=== PATIENT | female | born 1950 | race Caucasian/White ===

== ENCOUNTER 2017-02-03 16:39 | Emergency (ER) | payer MEDICAID ==
[~2017-02-03] VITALS: Ht 165.1 cm; Wt 92.0 kg
[~2017-02-03 16:39] MED LIST: IOHEXOL-300 100 ML BOTTLE ONE; SODIUM CHLORIDE 0.9% 10ML VIAL ONE
[2017-02-03 18:29] LABS: BASOPHILS % 0.6 % (0.0-2.0); EOSINOPHILS % 10.6 % (0.0-5.0); HEMATOCRIT. 37.8 % (36.0-48.0); HEMOGLOBIN. 12.5 g/dL (12.0-16.0); LYMPHOCYTES % 17.8 % (20.0-50.0); MEAN CORPUSCULAR HEMOGLOBIN 25.7 pg (28.0-32.0); MEAN CORPUSCULAR VOLUME 77.9 fL (81.0-99.0); MEAN PLATELET VOLUME 8.7 fl (7.4-10.4); MONOCYTES % 12.6 % (2.0-8.0); NEUTROPHILS % 58.4 % (40.0-76.0); PLATELET 224 x1000/uL (130-400); RED BLOOD CELL COUNT 4.86 mill/uL (4.2-5.4); RED CELL DISTRIBUTION WIDTH 27.4 % (11.6-14.6); WHITE BLOOD COUNT 4.5 x1000/uL (4.5-11.0)
[2017-02-03 18:30] LABS: ADD RBC MORPHOLOGY YES; DIFFERENTIAL COMMENT 1
[2017-02-03 18:36] LABS: INR 1.2; PROTHROMBIN TIME 12.4 sec
[2017-02-03] MEDS ORDERED: MORPHINE SULFATE 4 MG/ML CPJ (NOT FOR IM USE) IV STA (18:38)
[2017-02-03] MEDS ORDERED: SODIUM CHLORIDE 0.9% 500 ML IV ONE (18:38)
[2017-02-03] MEDS ORDERED: ONDANSETRON HCL 4MG/2ML VIAL IV STA (18:38)
[2017-02-03 18:47] LABS: ALANINE AMINOTRANSFERASE 25 IU/L (13-61); ANION GAP 13; CALCIUM 9.1 mg/dL (8.5-10.1); CARBON DIOXIDE 26 mEq/L (21-32); CHLORIDE 102 mEq/L (98-107); INDEX HEMOLYSI 1 (1-3); INDEX ICTERIC 1 (1-4); INDEX LIPEMIC 1 (1-3); LIPASE 81 IU/L (73-393); TROPONIN I < 0.02 ng/mL (0.00-0.04); UREA NITROGEN BLOOD 9 mg/dL (7-21); eGFR > 60 mL/min (>60)
[2017-02-03 18:51] LABS: PLATELET ESTIMATE NORMAL
[2017-02-03 18:52] LABS: ANISOCYTOSIS 2+
[2017-02-04] MEDS ORDERED: ONDANSETRON HCL 4MG/2ML VIAL IV ONE ×2 (01:00→01:41)
[2017-02-04] MEDS ORDERED: MORPHINE SULFATE 4 MG/ML CPJ (NOT FOR IM USE) IV ONE ×2 (01:00→01:41)
[2017-02-04 02:26] LABS: CLARITY URINE CLOUDY (CLEAR); COLOR URINE YELLOW (YELLOW); GLUCOSE URINE NEGATIVE (NEGATIVE); KETONES URINE NEGATIVE (NEGATIVE); LEUKOCYTE ESTERASE URINE TRACE (NEGATIVE); NITRITE URINE NEGATIVE (NEGATIVE); OCCULT BLOOD URINE NEGATIVE (NEGATIVE); PROTEIN URINE NEGATIVE (NEGATIVE); SPECIFIC GRAVITY URINE 1.084 (1.005-1.030); UROBILINOGEN URINE 0.2 E.U./dL (0.2-1.0)
[2017-02-04 02:35] VITALS: BP 140/63
[2017-02-04 03:08] LABS: BACTERIA URINE TRACE; RBC URINE 0-2 /hpf (0-2); SQUAMOUS EPITHELIAL CELL URINE 1+ /lpf (RARE/1+)
== END 2017-02-04 03:04 | disposition home or self-care (01) ==
LOC: ER 21:21
DX: K52.9 Noninfective gastroenteritis and colitis, unspecified (principal); J45.909 Unspecified asthma, uncomplicated; J44.9 Chronic obstructive pulmonary disease, unspecified; E11.9 Type 2 diabetes mellitus without complications; I10 Essential (primary) hypertension
CPT/HCPCS: 36415; 74177; 80053; 81001; 83690; 84484; 85025; 85610; 96361; 96374; 96375; 96376; 99285; A4216; J2270; J2405; J7030; Q9967; Z7610

== ENCOUNTER 2017-02-11 14:09 | Emergency (ER) | payer MEDICAID ==
[~2017-02-11] VITALS: Ht 165.1 cm; Wt 85.0 kg
[2017-02-11] MEDS ORDERED: SODIUM CHLORIDE 0.9% 1,000 ML IV ONE (14:46)
[2017-02-11] MEDS ORDERED: ONDANSETRON HCL 4MG/2ML VIAL IV STA (14:46)
[2017-02-11] MEDS ORDERED: MORPHINE SULFATE 4 MG/ML CPJ (NOT FOR IM USE) IV STA (14:46)
[2017-02-11 15:25] LABS: BASOPHILS % 0.4 % (0.0-2.0); EOSINOPHILS % 4.1 % (0.0-5.0); HEMATOCRIT. 39.1 % (36.0-48.0); HEMOGLOBIN. 12.6 g/dL (12.0-16.0); LYMPHOCYTES % 10.6 % (20.0-50.0); MEAN CORPUSCULAR HEMOGLOBIN 25.9 pg (28.0-32.0); MEAN CORPUSCULAR HGB CONC 32.3 g/dL (31.0-37.0); MEAN CORPUSCULAR VOLUME 80.1 fL (81.0-99.0); MEAN PLATELET VOLUME 8.9 fl (7.4-10.4); NEUTROPHILS % 77.9 % (40.0-76.0); PLATELET 205 x1000/uL (130-400); RED BLOOD CELL COUNT 4.87 mill/uL (4.2-5.4); RED CELL DISTRIBUTION WIDTH 27.5 % (11.6-14.6); WHITE BLOOD COUNT 7.1 x1000/uL (4.5-11.0)
[2017-02-11 15:28] LABS: CHLORIDE 98 mEq/L (98-107); INDEX HEMOLYSI 1 (1-3); INDEX ICTERIC 1 (1-4); INDEX LIPEMIC 1 (1-3)
[2017-02-11 15:30] LABS: INR 1.2; PROTHROMBIN TIME 12.5 sec
[2017-02-11 15:31] LABS: ADD RBC MORPHOLOGY YES; CALCIUM 8.5 mg/dL (8.5-10.1); DIFFERENTIAL COMMENT 1
[2017-02-11 15:37] LABS: ALANINE AMINOTRANSFERASE 44 IU/L (13-61); ALBUMIN 3.1 g/dL (3.4-5.0); ANION GAP 15; CARBON DIOXIDE 28 mEq/L (21-32); LIPASE 438 IU/L (73-393); UREA NITROGEN BLOOD 12 mg/dL (7-21); eGFR > 60 mL/min (>60)
[2017-02-11 16:14] LABS: ANISOCYTOSIS 2+; PLATELET ESTIMATE NORMAL
[2017-02-11 18:13] LABS: CLARITY URINE CLEAR (CLEAR); COLOR URINE YELLOW (YELLOW); GLUCOSE URINE NEGATIVE (NEGATIVE); KETONES URINE NEGATIVE (NEGATIVE); LEUKOCYTE ESTERASE URINE TRACE (NEGATIVE); NITRITE URINE NEGATIVE (NEGATIVE); OCCULT BLOOD URINE NEGATIVE (NEGATIVE); PROTEIN URINE NEGATIVE (NEGATIVE); SPECIFIC GRAVITY URINE 1.049 (1.005-1.030); UROBILINOGEN URINE 0.2 E.U./dL (0.2-1.0)
[2017-02-11] MEDS ORDERED: MORPHINE SULFATE 4 MG/ML CPJ (NOT FOR IM USE) IV NR (19:00)
[2017-02-11] MEDS ORDERED: ONDANSETRON HCL 4MG/2ML VIAL IV NR (19:00)
[2017-02-11 19:12] LABS: BACTERIA URINE TRACE; RBC URINE 0-2 /hpf (0-2); SQUAMOUS EPITHELIAL CELL URINE 1+ /lpf (RARE/1+); WBC URINE 0-2 /hpf (0-2)
[2017-02-11 21:20] VITALS: BP 132/62
== END 2017-02-11 21:24 | disposition home or self-care (01) ==
LOC: ER 14:38
DX: R10.9 Unspecified abdominal pain (principal); E11.9 Type 2 diabetes mellitus without complications; I10 Essential (primary) hypertension; J44.9 Chronic obstructive pulmonary disease, unspecified
CPT/HCPCS: 36415; 74177; 76705; 80053; 81001; 82962; 83690; 85025; 85610; 96361; 96374; 96375; 96376; 99285; A4216; J2270; J2405; J7030; Q9967; Z7610

== ENCOUNTER 2018-07-15 15:13 | Emergency (ER) | payer MEDICAID ==
[~2018-07-15] VITALS: Ht 165.1 cm; Wt 113.0 kg
[2018-07-15] MEDS ORDERED: BACITRACIN ZINC OINT UDPKT TOP ONE (20:30)
[2018-07-15] MEDS ORDERED: HYDROCODONE/ACETAMINOPHEN 5/325MG TABLET PO ONE ×2 (20:30→23:30)
[2018-07-15] MEDS ORDERED: TETANUS, DIPHTHERIA, PERTUSSIS VAC/PF 0.5ML (>7YR OLD) IM ONE (20:30)
[2018-07-15 23:46] VITALS: BP 149/65
== END 2018-07-15 23:50 | disposition home or self-care (01) ==
LOC: ER 15:13
DX: S52.502A Unspecified fracture of the lower end of left radius, initial encounter for closed fracture (principal); S83.91XA Sprain of unspecified site of right knee, initial encounter; E11.9 Type 2 diabetes mellitus without complications; I10 Essential (primary) hypertension; M25.532 Pain in left wrist; M54.2 Cervicalgia; W19.XXXA Unspecified fall, initial encounter; Y93.89 Activity, other specified; Y92.89 Other specified places as the place of occurrence of the external cause; Y99.8 Other external cause status
CPT/HCPCS: 29125; 72125; 73110; 73552; 73562; 90471; 90715; 99284; L1830

== ENCOUNTER 2019-11-23 10:28 | Emergency (ER) | payer MEDICAID, MEDICARE ==
[~2019-11-23] VITALS: Ht 165.1 cm; Wt 104.0 kg
[2019-11-23] MEDS ORDERED: SODIUM CHLORIDE 0.9% 1,000 ML IV ONE (17:36)
[2019-11-23] MEDS ORDERED: MORPHINE SULFATE 4 MG/ML CPJ (NOT FOR IM USE) IV STA (17:36)
[2019-11-23] MEDS ORDERED: ONDANSETRON HCL 4MG/2ML INJ IV STA (17:36)
[2019-11-23 18:15] LABS: BASOPHILS % 0.4 % (0.0-2.0); EOSINOPHILS % 3.2 % (0.0-5.0); HEMATOCRIT. 34.2 % (36.0-48.0); LYMPHOCYTES % 11.4 % (20.0-50.0); MEAN CORPUSCULAR HEMOGLOBIN 24.6 pg (28.0-32.0); MEAN CORPUSCULAR VOLUME 76.6 fL (81.0-99.0); MEAN PLATELET VOLUME 8.2 fl (7.4-10.4); MONOCYTES % 8.6 % (2.0-8.0); NEUTROPHILS % 76.4 % (40.0-76.0); PLATELET 237 x1000/uL (130-400); RED BLOOD CELL COUNT 4.47 mill/uL (4.2-5.4); RED CELL DISTRIBUTION WIDTH 16.7 % (11.6-14.6)
[2019-11-23 18:19] LABS: CHLORIDE 100 mEq/L (98-107)
[2019-11-23 21:21] LABS: CLARITY URINE CLEAR (CLEAR); COLOR URINE YELLOW (YELLOW); KETONES URINE NEGATIVE (NEGATIVE); LEUKOCYTE ESTERASE URINE 1+ (NEGATIVE); NITRITE URINE NEGATIVE (NEGATIVE); OCCULT BLOOD URINE NEGATIVE (NEGATIVE); PH URINE 6.5 (4.5-8.0); PROTEIN URINE TRACE (NEGATIVE); SPECIFIC GRAVITY URINE 1.009 (1.005-1.030); UROBILINOGEN URINE 0.2 E.U./dL (0.2-1.0)
[2019-11-23] MEDS ORDERED: KETOROLAC 30MG/ML VIAL IV ONE (21:45)
[2019-11-23] MEDS ORDERED: MORPHINE SULFATE 4 MG/ML CPJ (NOT FOR IM USE) IV ONE (21:45)
[2019-11-23] MEDS ORDERED: ONDANSETRON HCL 4MG/2ML INJ IV ONE (21:45)
[2019-11-23 23:09] VITALS: BP 160/58
== END 2019-11-23 23:09 | disposition home or self-care (01) ==
LOC: ER 10:28
DX: R10.9 Unspecified abdominal pain (principal); K80.20 Calculus of gallbladder without cholecystitis without obstruction; N39.0 Urinary tract infection, site not specified; J45.909 Unspecified asthma, uncomplicated; E11.9 Type 2 diabetes mellitus without complications; I10 Essential (primary) hypertension; Z98.890 Other specified postprocedural states
CPT/HCPCS: 36415; 71045; 74176; 80053; 81003; 82962; 83690; 83880; 84484; 85025; 93005; 96374; 96375; 96376; 99284; J1885; J2270; J2405; J7030

== ENCOUNTER 2019-12-27 16:43 | Inpatient (IN) | payer MEDICARE, MEDICAID ==
[~2019-12-27] VITALS: Ht 160 cm; Wt 109.8 kg
[2019-12-27] MEDS ORDERED: KETOROLAC 30MG/ML VIAL IV STA (18:15)
[2019-12-27] MEDS ORDERED: ONDANSETRON HCL 4MG/2ML INJ IV STA (18:15)
[2019-12-27 18:39] LABS: BASOPHILS % 0.3 % (0.0-2.0); EOSINOPHILS % 5.3 % (0.0-5.0); HEMATOCRIT. 34.7 % (36.0-48.0); HEMOGLOBIN. 11.2 g/dL (12.0-16.0); LYMPHOCYTES % 9.7 % (20.0-50.0); MEAN CORPUSCULAR HEMOGLOBIN 24.6 pg (28.0-32.0); MEAN CORPUSCULAR VOLUME 75.8 fL (81.0-99.0); MEAN PLATELET VOLUME 8.6 fl (7.4-10.4); MONOCYTES % 8.9 % (2.0-8.0); NEUTROPHILS % 75.8 % (40.0-76.0); PLATELET 236 x1000/uL (130-400); RED BLOOD CELL COUNT 4.58 mill/uL (4.2-5.4)
[2019-12-27 18:41] LABS: CLARITY URINE CLOUDY (CLEAR); COLOR URINE YELLOW (YELLOW); KETONES URINE NEGATIVE (NEGATIVE); LEUKOCYTE ESTERASE URINE 2+ (NEGATIVE); NITRITE URINE NEGATIVE (NEGATIVE); OCCULT BLOOD URINE NEGATIVE (NEGATIVE); PH URINE 5.5 (4.5-8.0); PROTEIN URINE NEGATIVE (NEGATIVE); UROBILINOGEN URINE 0.2 E.U./dL (0.2-1.0)
[2019-12-27 18:43] LABS: CHLORIDE 98 mEq/L (98-107)
[2019-12-27] MEDS ORDERED: MORPHINE SULFATE 4 MG/ML CPJ (NOT FOR IM USE) IV ONE (20:30)
[2019-12-27] MEDS ORDERED: IOHEXOL-300 100 ML BOTTLE ONE (21:58)
[2019-12-27] MEDS ORDERED: METRONIDAZOLE 500 MG PREMIX 100 ML IV ONE (22:00)
[2019-12-27] MEDS ORDERED: CEFTRIAXONE 1 G PREMIX 50 ML IV ONE (22:00)
[2019-12-28] MEDS ORDERED: MORPHINE SULFATE 2 MG/ML CPJ (NOT FOR IM USE) IV ONE (01:30)
[2019-12-28] MEDS ORDERED: DEXTROSE 50% WATER 50ML SYRINGE IV PRN ×2 (04:00→17:00)
[2019-12-28] MEDS: INSULIN REGULAR HUMAN (LOW DOSE) 100 UNITS/ML 3ML VIAL SUBCUT SCH ×3 (04:00→12:00)
[2019-12-28] MEDS: DEXT 5%/0.45% NACL 1000ML 1,000 ML IV SCH ×2 (04:15→16:49)
[2019-12-28] MEDS: BLOOD SUGAR DIAGNOSTIC STRIP TEST SCH ×5 (04:59→21:34)
[2019-12-28] MEDS ORDERED: ONDANSETRON HCL 4MG/2ML INJ IV SCH (06:00)
[2019-12-28] MEDS ORDERED: MORPHINE SULFATE 2 MG/ML CPJ (NOT FOR IM USE) IV SCH (06:00)
[2019-12-28 08:00] VITALS: BP 129/47
[2019-12-28] MEDS ORDERED: HYDR-4135 PO (08:29)
[2019-12-28] MEDS ORDERED: LOSA25TA26 PO (08:29)
[2019-12-28] MEDS ORDERED: ALBU6.7H11 INH (08:29)
[2019-12-28] MEDS ORDERED: HUM100IN SQ (08:29)
[2019-12-28] MEDS ORDERED: LEVOFLOXACIN 500MG PREMIX 100 ML IV NR (09:00)
[2019-12-28 09:55] LABS: HEMOGLOBIN. 10.2 g/dL (12.0-16.0); MEAN CORPUSCULAR HEMOGLOBIN 24.3 pg (28.0-32.0); MEAN CORPUSCULAR VOLUME 76.3 fL (81.0-99.0); MEAN PLATELET VOLUME 8.4 fl (7.4-10.4); PLATELET 218 x1000/uL (130-400); RED BLOOD CELL COUNT 4.19 mill/uL (4.2-5.4); RED CELL DISTRIBUTION WIDTH 16.6 % (11.6-14.6)
[2019-12-28 10:39] LABS: CHLORIDE 102 mEq/L (98-107)
[2019-12-28] MEDS: MORPHINE SULFATE 2 MG/ML CPJ (NOT FOR IM USE) IV PRN ×3 (10:48→21:27)
[2019-12-28] MEDS: ENOXAPARIN 40MG/0.4ML SYR SUBCUT SCH (10:49)
[2019-12-28 11:06] LABS: PLATELET ESTIMATE NORMAL
[2019-12-28] MEDS: METRONIDAZOLE 500 MG PREMIX 100 ML IV SCH ×2 (11:36→18:38)
[2019-12-28 12:00] VITALS: BP 125/54
[2019-12-28] MEDS ORDERED: PNEUMOCOCCAL 23-VAL P-SAC VAC 0.5 ML IM ONE (14:00)
[2019-12-28] MEDS ORDERED: INFLUENZA VIRUS VACCINE(AFLURIA) 0.5ML SYR IM ONE (14:00)
[2019-12-28 16:00] VITALS: BP 112/36
[2019-12-28] MEDS ORDERED: DIPHENHYDRAMINE 50MG/ML VIAL IV PRN (17:00)
[2019-12-28] MEDS ORDERED: IPRATROPIUM/ALBUTEROL 0.5-3(2.5)MG/3ML NEB HHN PRN (17:00)
[2019-12-28] MEDS ORDERED: LORAZEPAM 2MG/ML CPJ IV PRN (17:00)
[2019-12-28 17:32] LABS: BG BASE EXCESS -1.5 mmol/L (-2.0-2.0); BG CARBOXYHEMOGLOBIN 0.5 % (0.5-1.5); BG DEOXYHEMOGLOBIN 6.6 % (0.0-5.0); BG FRACTION INSPIRED OXYGEN 21; BG HCO3 ACT 23.9 mmol/L (22.0-26.0); BG METHEMOGLOBIN 0.1 % (0.0-1.5); BG OXYGEN SATURATION 93.4 % (92.0-98.5); BG OXYHEMOGLOBIN 92.8 % (94.0-97.0); BG PCO2 42.6 mmHg (35.0-45.0); BG PH 7.366 (7.350-7.450); BG PO2 69.8 mmHg (75.0-100.0); BG SAMPLE SITE RIGHT RADIAL; BG TOTAL HEMOGLOBIN 10.5 g/dL (12.0-18.0); BG VENT MODE ROOM AIR
[2019-12-28] MEDS: INSULIN LISPRO 100 UNITS/ML SUBCUT SCH ×2 (17:50→21:40)
[2019-12-28 19:17] LABS: INR 1.1; PROTHROMBIN TIME 12.4 sec (9.6-11.0)
[2019-12-28] MEDS: SODIUM CHLORIDE 0.9% 1,000 ML IV SCH (19:34)
[2019-12-28 20:00] VITALS: BP 123/52
[2019-12-28] MEDS: IPRATROPIUM/ALBUTEROL 0.5-3(2.5)MG/3ML NEB HHN SCH (20:33)
[2019-12-28] MEDS: BUDESONIDE 0.5MG/2ML NEB HHN SCH (20:34)
[2019-12-29 00:53] VITALS: BP 120/58
[2019-12-29] MEDS: IPRATROPIUM/ALBUTEROL 0.5-3(2.5)MG/3ML NEB HHN SCH ×4 (01:24→20:29)
[2019-12-29] MEDS: METRONIDAZOLE 500 MG PREMIX 100 ML IV SCH ×3 (02:14→17:14)
[2019-12-29] MEDS: MORPHINE SULFATE 2 MG/ML CPJ (NOT FOR IM USE) IV PRN ×3 (03:46→18:39)
[2019-12-29 04:00] VITALS: BP 114/50
[2019-12-29] MEDS ORDERED: PIPERACILLIN/TAZOBACTAM 3.375GM/50ML PREMIX IV STA (05:23)
[2019-12-29] MEDS ORDERED: PIPERACILLIN/TAZOBACTAM 3.375 G in DEXT 5% WATER 100 ML IV NR (06:00)
[2019-12-29] MEDS: BLOOD SUGAR DIAGNOSTIC STRIP TEST SCH ×4 (06:27→21:54)
[2019-12-29] MEDS ORDERED: ACETAMINOPHEN 650MG SUPP PR PRN (06:45)
[2019-12-29 07:29] LABS: BASOPHILS % 0.7 % (0.0-2.0); EOSINOPHILS % 11.3 % (0.0-5.0); HEMATOCRIT. 29.1 % (36.0-48.0); HEMOGLOBIN. 9.3 g/dL (12.0-16.0); LYMPHOCYTES % 8.4 % (20.0-50.0); MEAN CORPUSCULAR HEMOGLOBIN 24.7 pg (28.0-32.0); MONOCYTES % 9.2 % (2.0-8.0); NEUTROPHILS % 70.4 % (40.0-76.0); PLATELET 190 x1000/uL (130-400); RED BLOOD CELL COUNT 3.78 mill/uL (4.2-5.4); RED CELL DISTRIBUTION WIDTH 16.8 % (11.6-14.6)
[2019-12-29 07:31] LABS: CHLORIDE 106 mEq/L (98-107)
[2019-12-29 08:06] VITALS: BP 136/46
[2019-12-29] MEDS: SODIUM CHLORIDE 0.9% 1,000 ML IV SCH (09:40)
[2019-12-29] MEDS: ENOXAPARIN 40MG/0.4ML SYR SUBCUT SCH (10:21)
[2019-12-29] MEDS: LEVOFLOXACIN 250MG PREMIX 50 ML IV SCH (10:22)
[2019-12-29] MEDS: INSULIN LISPRO 100 UNITS/ML SUBCUT SCH ×4 (10:24→21:00)
[2019-12-29 12:16] VITALS: BP 145/59
[2019-12-29] MEDS: PIPERACILLIN/TAZOBACTAM 3.375 G in DEXT 5% WATER 100 ML IV SCH ×2 (12:48→18:35)
[2019-12-29] MEDS: BUDESONIDE 0.5MG/2ML NEB HHN SCH ×2 (14:56→20:29)
[2019-12-29 16:19] VITALS: BP 129/53
[2019-12-29] MEDS ORDERED: SKIN ADHESIVE 0.7 GM EA TOP ONE (20:02)
[2019-12-29] MEDS ORDERED: BACITRACIN 50,000 UNITS/VIAL ONE (20:03)
[2019-12-29] MEDS ORDERED: BUPIVACAINE HCL/PF 0.5% (5MG/ML) 10ML ONE (20:03)
[2019-12-29] MEDS ORDERED: LIDOCAINE HCL 1% 20ML VIAL (Pyxis) INJ ONE (20:03)
[2019-12-29 20:48] VITALS: BP 128/50
[2019-12-29] MEDS ORDERED: PROPOFOL 200MG/20ML VIAL IV ONE (21:24)
[2019-12-29] MEDS ORDERED: FENTANYL CITRATE/PF 50MCG/ML 2ML VIAL ONE ×2 (21:24→23:11)
[2019-12-29] MEDS ORDERED: NEOSTIGMINE METHYLSULFATE 1MG/ML 10 ML VIAL ONE (21:24)
[2019-12-29] MEDS ORDERED: ROCURONIUM BROMIDE 10MG/ML VIAL 5ML IV ONE (21:24)
[2019-12-29] MEDS ORDERED: GLYCOPYRROLATE 0.2 MG/ML 2ML VIAL ONE ×2 (21:25→22:54)
[2019-12-29] MEDS ORDERED: MIDAZOLAM HCL 2 MG/2 ML VIAL ONE ×2 (21:25→23:11)
[2019-12-29] MEDS ORDERED: ALBUTEROL 90MCG/PUFF 17GM INHALER INH ONE (21:28)
[2019-12-29] MEDS ORDERED: MEPERIDINE HCL/PF 25MG/ML CPJ IV PRN (22:15)
[2019-12-29] MEDS ORDERED: HYDROMORPHONE HCL/PF 2MG/ML CPJ IV PRN (22:15)
[2019-12-29] MEDS ORDERED: LABETALOL 5MG/ML SYR 20 MG/4 ML SYRINGE IV PRN (22:15)
[2019-12-29] MEDS ORDERED: ONDANSETRON HCL 4MG/2ML INJ IV PRN (22:15)
[2019-12-29] MEDS ORDERED: DEXAMETHASONE 4MG/ML 1ML VIAL ONE (22:48)
[2019-12-29] MEDS ORDERED: ONDANSETRON HCL 4MG/2ML INJ ONE (22:52)
[2019-12-30] VITALS (10 sets, daily range): BP systolic 92–169; BP diastolic 40–83
[2019-12-30] MEDS: ONDANSETRON HCL 4MG/2ML INJ IV PRN ×2 (00:41→22:14)
[2019-12-30 01:12] LABS: BG BASE EXCESS -7.3 mmol/L (-2.0-2.0); BG CARBOXYHEMOGLOBIN 0.3 % (0.5-1.5); BG DEOXYHEMOGLOBIN 4.7 % (0.0-5.0); BG FRACTION INSPIRED OXYGEN 36; BG HCO3 ACT 22.4 mmol/L (22.0-26.0); BG METHEMOGLOBIN 0.2 % (0.0-1.5); BG OXYGEN SATURATION 95.3 % (92.0-98.5); BG OXYHEMOGLOBIN 94.8 % (94.0-97.0); BG PCO2 67.9 mmHg (35.0-45.0); BG PH 7.136 (7.350-7.450); BG PO2 96.4 mmHg (75.0-100.0); BG SAMPLE SITE RIGHT RADIAL; BG TOTAL HEMOGLOBIN 11.3 g/dL (12.0-18.0); BG VENT MODE NASAL CANNULA
[2019-12-30 01:50] LABS: BG BASE EXCESS -7.9 mmol/L (-2.0-2.0); BG CARBOXYHEMOGLOBIN 0.3 % (0.5-1.5); BG DEOXYHEMOGLOBIN 3.8 % (0.0-5.0); BG FRACTION INSPIRED OXYGEN 28; BG HCO3 ACT 19.1 mmol/L (22.0-26.0); BG METHEMOGLOBIN 0.1 % (0.0-1.5); BG OXYGEN SATURATION 96.2 % (92.0-98.5); BG OXYHEMOGLOBIN 95.8 % (94.0-97.0); BG PCO2 44.9 mmHg (35.0-45.0); BG PH 7.246 (7.350-7.450); BG PO2 97.3 mmHg (75.0-100.0); BG SAMPLE SITE RIGHT RADIAL; BG TOTAL HEMOGLOBIN 10.8 g/dL (12.0-18.0); BG VENT MODE NASAL CANNULA
[2019-12-30] MEDS: IPRATROPIUM/ALBUTEROL 0.5-3(2.5)MG/3ML NEB HHN SCH ×4 (02:40→20:59)
[2019-12-30] MEDS: MORPHINE SULFATE 2 MG/ML CPJ (NOT FOR IM USE) IV PRN ×4 (03:36→20:40)
[2019-12-30] MEDS: PIPERACILLIN/TAZOBACTAM 3.375 G in DEXT 5% WATER 100 ML IV SCH ×4 (03:37→17:25)
[2019-12-30] MEDS: METRONIDAZOLE 500 MG PREMIX 100 ML IV SCH ×3 (03:37→17:25)
[2019-12-30] MEDS: SODIUM CHLORIDE 0.9% 1,000 ML IV SCH ×2 (03:37→20:41)
[2019-12-30 07:17] LABS: HEMATOCRIT. 31.8 % (36.0-48.0); MEAN CORPUSCULAR HEMOGLOBIN 24.5 pg (28.0-32.0); MEAN CORPUSCULAR VOLUME 78.4 fL (81.0-99.0); MEAN PLATELET VOLUME 8.7 fl (7.4-10.4); PLATELET 204 x1000/uL (130-400); RED BLOOD CELL COUNT 4.06 mill/uL (4.2-5.4)
[2019-12-30 07:23] LABS: CHLORIDE 106 mEq/L (98-107)
[2019-12-30] MEDS: BLOOD SUGAR DIAGNOSTIC STRIP TEST SCH ×4 (07:46→21:00)
[2019-12-30 08:07] LABS: BG BASE EXCESS -4.1 mmol/L (-2.0-2.0); BG CARBOXYHEMOGLOBIN 0.3 % (0.5-1.5); BG DEOXYHEMOGLOBIN 2.1 % (0.0-5.0); BG FRACTION INSPIRED OXYGEN 32; BG HCO3 ACT 21.9 mmol/L (22.0-26.0); BG METHEMOGLOBIN 0.3 % (0.0-1.5); BG OXYGEN SATURATION 97.9 % (92.0-98.5); BG OXYHEMOGLOBIN 97.3 % (94.0-97.0); BG PCO2 43.9 mmHg (35.0-45.0); BG PH 7.316 (7.350-7.450); BG PO2 110.2 mmHg (75.0-100.0); BG SAMPLE SITE RIGHT RADIAL; BG TOTAL HEMOGLOBIN 10.6 g/dL (12.0-18.0); BG VENT MODE NASAL CANNULA
[2019-12-30] MEDS: ENOXAPARIN 40MG/0.4ML SYR SUBCUT SCH (08:17)
[2019-12-30] MEDS: INSULIN LISPRO 100 UNITS/ML SUBCUT SCH ×4 (08:19→20:57)
[2019-12-30] MEDS: LEVOFLOXACIN 250MG PREMIX 50 ML IV SCH (08:20)
[2019-12-30] MEDS: BUDESONIDE 0.5MG/2ML NEB HHN SCH ×2 (09:14→21:00)
[2019-12-30 10:08] LABS: PLATELET ESTIMATE NORMAL
[2019-12-30] MEDS ORDERED: INSULIN GLARGINE UD 100 UNITS/ML SYR SUBCUT NR (13:00)
[2019-12-30 13:28] LABS: BG BASE EXCESS -3.7 mmol/L (-2.0-2.0); BG CARBOXYHEMOGLOBIN 0.3 % (0.5-1.5); BG DEOXYHEMOGLOBIN 6.6 % (0.0-5.0); BG FRACTION INSPIRED OXYGEN 21; BG HCO3 ACT 21.8 mmol/L (22.0-26.0); BG METHEMOGLOBIN 0.3 % (0.0-1.5); BG OXYGEN SATURATION 93.4 % (92.0-98.5); BG OXYHEMOGLOBIN 92.8 % (94.0-97.0); BG PCO2 41.7 mmHg (35.0-45.0); BG PH 7.337 (7.350-7.450); BG PO2 68.5 mmHg (75.0-100.0); BG SAMPLE SITE RIGHT RADIAL; BG VENT MODE ROOM AIR
[2019-12-30] MEDS: ACETAMINOPHEN 325MG TABLET PO PRN (22:14)
[2019-12-31] VITALS (10 sets, daily range): BP systolic 105–136; BP diastolic 41–87
[2019-12-31] MEDS: PIPERACILLIN/TAZOBACTAM 3.375 G in DEXT 5% WATER 100 ML IV SCH ×4 (00:36→18:16)
[2019-12-31] MEDS: IPRATROPIUM/ALBUTEROL 0.5-3(2.5)MG/3ML NEB HHN SCH ×4 (01:04→22:06)
[2019-12-31] MEDS: METRONIDAZOLE 500 MG PREMIX 100 ML IV SCH ×3 (01:20→18:16)
[2019-12-31] MEDS: INSULIN LISPRO 100 UNITS/ML SUBCUT SCH ×4 (06:49→21:17)
[2019-12-31] MEDS: BLOOD SUGAR DIAGNOSTIC STRIP TEST SCH ×4 (06:50→20:59)
[2019-12-31 07:33] LABS: CHLORIDE 107 mEq/L (98-107)
[2019-12-31 07:34] LABS: BASOPHILS % 0.2 % (0.0-2.0); EOSINOPHILS % 0.3 % (0.0-5.0); HEMOGLOBIN. 8.8 g/dL (12.0-16.0); LYMPHOCYTES % 7.8 % (20.0-50.0); MEAN CORPUSCULAR HEMOGLOBIN 24.7 pg (28.0-32.0); MEAN CORPUSCULAR VOLUME 78.1 fL (81.0-99.0); MEAN PLATELET VOLUME 8.9 fl (7.4-10.4); MONOCYTES % 8.9 % (2.0-8.0); NEUTROPHILS % 82.8 % (40.0-76.0); PLATELET 185 x1000/uL (130-400); RED BLOOD CELL COUNT 3.58 mill/uL (4.2-5.4); RED CELL DISTRIBUTION WIDTH 16.9 % (11.6-14.6)
[2019-12-31] MEDS: LEVOFLOXACIN 250MG PREMIX 50 ML IV SCH (08:44)
[2019-12-31] MEDS: ENOXAPARIN 40MG/0.4ML SYR SUBCUT SCH (08:46)
[2019-12-31] MEDS: MORPHINE SULFATE 2 MG/ML CPJ (NOT FOR IM USE) IV PRN ×3 (08:46→18:17)
[2019-12-31] MEDS: BUDESONIDE 0.5MG/2ML NEB HHN SCH ×2 (09:30→22:06)
[2019-12-31] MEDS: INSULIN GLARGINE UD 100 UNITS/ML SYR SUBCUT SCH (09:47)
[2019-12-31] MEDS: SODIUM CHLORIDE 0.9% 1,000 ML IV SCH (10:24)
[2019-12-31] MEDS ORDERED: HYDR-4001 MT ×2 (13:07)
[2019-12-31] MEDS ORDERED: HYDR-4009 MT (13:16)
[2019-12-31] MEDS: DOCUSATE SODIUM 250MG CAPSULE PO SCH (18:16)
[2019-12-31] MEDS: ACETAMINOPHEN 325MG TABLET PO PRN (21:09)
[2020-01-01] VITALS (7 sets, daily range): BP systolic 137–156; BP diastolic 63–80
[2020-01-01] MEDS: MORPHINE SULFATE 2 MG/ML CPJ (NOT FOR IM USE) IV PRN ×4 (00:13→14:45)
[2020-01-01] MEDS: PIPERACILLIN/TAZOBACTAM 3.375 G in DEXT 5% WATER 100 ML IV SCH ×4 (00:20→18:00)
[2020-01-01] MEDS: SODIUM CHLORIDE 0.9% 1,000 ML IV SCH (03:14)
[2020-01-01] MEDS: METRONIDAZOLE 500 MG PREMIX 100 ML IV SCH ×3 (03:14→18:00)
[2020-01-01] MEDS: IPRATROPIUM/ALBUTEROL 0.5-3(2.5)MG/3ML NEB HHN SCH ×3 (03:21→12:00)
[2020-01-01] MEDS: BLOOD SUGAR DIAGNOSTIC STRIP TEST SCH ×3 (07:30→18:16)
[2020-01-01] MEDS: ENOXAPARIN 40MG/0.4ML SYR SUBCUT SCH (09:53)
[2020-01-01] MEDS: DOCUSATE SODIUM 250MG CAPSULE PO SCH (09:53)
[2020-01-01] MEDS: LEVOFLOXACIN 250MG PREMIX 50 ML IV SCH (09:53)
[2020-01-01] MEDS: INSULIN LISPRO 100 UNITS/ML SUBCUT SCH ×3 (09:54→19:22)
[2020-01-01] MEDS: INSULIN GLARGINE UD 100 UNITS/ML SYR SUBCUT SCH (09:54)
[2020-01-01 16:28] LABS: BASOPHILS % 0.3 % (0.0-2.0); EOSINOPHILS % 9.9 % (0.0-5.0); HEMATOCRIT. 30.1 % (36.0-48.0); HEMOGLOBIN. 9.4 g/dL (12.0-16.0); LYMPHOCYTES % 7.3 % (20.0-50.0); MEAN CORPUSCULAR HEMOGLOBIN 24.7 pg (28.0-32.0); MEAN CORPUSCULAR VOLUME 78.7 fL (81.0-99.0); MEAN PLATELET VOLUME 8.8 fl (7.4-10.4); NEUTROPHILS % 73.5 % (40.0-76.0); PLATELET 186 x1000/uL (130-400); RED BLOOD CELL COUNT 3.82 mill/uL (4.2-5.4); RED CELL DISTRIBUTION WIDTH 17.7 % (11.6-14.6)
[2020-01-01 16:37] LABS: CHLORIDE 109 mEq/L (98-107)
[2020-01-01] MEDS ORDERED: ENOXAPARIN 30MG/0.3ML SYR SUBCUT SCH (21:00)
[2020-01-02] MEDS ORDERED: INSULIN GLARGINE UD 100 UNITS/ML SYR SUBCUT SCH (10:00)
== END 2020-01-01 19:47 | disposition home or self-care (01) | DRG 418 ==
LOC: ER 16:43 → 6WST 12-28 00:22 → EDBEDREQTM 12-28 00:28 → EDBEDREQ 12-28 00:28 → ENRESERV 12-28 05:28 → 5EST 12-30 02:50
PROVIDERS: ADMIT Internal Medicine; ATTEND Internal Medicine
PROC: 0FT44ZZ Resection of Gallbladder, Percutaneous Endoscopic Approach (ICD-10-PCS; principal; 2019-12-29)
DX: K80.01 Calculus of gallbladder with acute cholecystitis with obstruction (principal); E87.1 Hypo-osmolality and hyponatremia; N39.0 Urinary tract infection, site not specified; E87.2 Acidosis; J45.901 Unspecified asthma with (acute) exacerbation; Z68.41 Body mass index [BMI] 40.0-44.9, adult; E66.01 Morbid (severe) obesity due to excess calories; E11.65 Type 2 diabetes mellitus with hyperglycemia; J45.909 Unspecified asthma, uncomplicated; E86.0 Dehydration; D64.9 Anemia, unspecified; K74.60 Unspecified cirrhosis of liver; D25.9 Leiomyoma of uterus, unspecified; K52.9 Noninfective gastroenteritis and colitis, unspecified; K76.0 Fatty (change of) liver, not elsewhere classified; N20.0 Calculus of kidney; R09.02 Hypoxemia; R16.0 Hepatomegaly, not elsewhere classified; I11.9 Hypertensive heart disease without heart failure; Z87.891 Personal history of nicotine dependence; Z91.19 Patient's noncompliance with other medical treatment and regimen; Z79.899 Other long term (current) drug therapy
CPT/HCPCS: 36415; 36600; 71045; 74177; 76705; 78227; 80048; 80053; 80076; 81003; 82375; 82805; 82962; 83036; 83735; 84484; 85025; 86850; 86900; 87804; 88304; 90686; 90732; 93005; 93306; 93970; 94002; 94618; 94640; 97162; 99285; A9537; J0696; J1100; J1650; J1815; J1885; J1956; J2060; J2175; J2250; J2270; J2405; J2543; J2704; J2710; J3010; J3490; J7030; J7060; J7626; Q9967

== ENCOUNTER 2020-01-03 11:21 | Inpatient (IN) | payer MEDICARE, MEDICAID ==
[~2020-01-03] VITALS: Ht 165.1 cm; Wt 104.3 kg
[~2020-01-03 11:21] MED LIST changes: +ALBU6.7H11 INH; +HUM100IN SQ; +HYDR-4001 MT; +HYDR-4009 MT; +HYDR-4135 PO; -IOHEXOL-300 100 ML BOTTLE ONE; +LOSA25TA26 PO; -SODIUM CHLORIDE 0.9% 10ML VIAL ONE
[2020-01-03] MEDS ORDERED: IPRATROPIUM BROMIDE (0.02%) 0.5MG/2.5ML NEB HHN STA (12:05)
[2020-01-03] MEDS ORDERED: METHYLPREDNISOLONE SOD SUCC 125 MG/2 ML VIAL IV STA (12:05)
[2020-01-03] MEDS ORDERED: ONDANSETRON HCL 4MG/2ML INJ IV STA (12:05)
[2020-01-03] MEDS ORDERED: MORPHINE SULFATE 4 MG/ML CPJ (NOT FOR IM USE) IV STA (12:05)
[2020-01-03] MEDS ORDERED: ALBUTEROL (0.083%) 2.5MG/3ML NEB HHN STA (12:05)
[2020-01-03 12:28] LABS: HEMATOCRIT. 33.6 % (36.0-48.0); HEMOGLOBIN. 10.7 g/dL (12.0-16.0); MEAN CORPUSCULAR HEMOGLOBIN 24.5 pg (28.0-32.0); MEAN PLATELET VOLUME 8.2 fl (7.4-10.4); PLATELET 236 x1000/uL (130-400); RED BLOOD CELL COUNT 4.36 mill/uL (4.2-5.4); RED CELL DISTRIBUTION WIDTH 17.4 % (11.6-14.6)
[2020-01-03 12:30] LABS: CHLORIDE 104 mEq/L (98-107); INR 1.1; PROTHROMBIN TIME 12.3 sec (9.6-11.0)
[2020-01-03 12:50] LABS: PLATELET ESTIMATE NORMAL
[2020-01-03] MEDS ORDERED: PIPERACILLIN/TAZ 3.375G PREMIX 50 ML IV ONE (13:00)
[2020-01-03] MEDS ORDERED: SODIUM CHLORIDE 0.9% 1,000 ML IV ONE (14:12)
[2020-01-03] MEDS ORDERED: MORPHINE SULFATE 4 MG/ML CPJ (NOT FOR IM USE) IV ONE (15:30)
[2020-01-03] MEDS ORDERED: IOHEXOL-350 100 ML BOTTLE ONE (17:18)
[2020-01-03 17:22] LABS: CLARITY URINE CLOUDY (CLEAR); COLOR URINE YELLOW (YELLOW); KETONES URINE 1+ (NEGATIVE); LEUKOCYTE ESTERASE URINE 2+ (NEGATIVE); NITRITE URINE NEGATIVE (NEGATIVE); OCCULT BLOOD URINE NEGATIVE (NEGATIVE); PROTEIN URINE NEGATIVE (NEGATIVE); UROBILINOGEN URINE 0.2 E.U./dL (0.2-1.0)
[2020-01-03] MEDS ORDERED: CLONIDINE 0.1MG TABLET PO PRN (21:10)
[2020-01-03] MEDS ORDERED: MORPHINE SULFATE 2 MG/ML CPJ (NOT FOR IM USE) IV PRN (21:11)
[2020-01-03 21:40] VITALS: BP 152/65
[2020-01-03] MEDS ORDERED: ONDANSETRON HCL 4MG/2ML INJ IV PRN (23:15)
[2020-01-03] MEDS ORDERED: DEXTROSE 50% WATER 50ML SYRINGE IV PRN (23:15)
[2020-01-03] MEDS ORDERED: ACETAMINOPHEN 325MG TABLET PO PRN (23:15)
[2020-01-04] VITALS: BP 143/62
[2020-01-04] MEDS ORDERED: PIPERACILLIN/TAZOBACTAM 3.375 G/VIAL IV SCH
[2020-01-04] MEDS: PIPERACILLIN/TAZOBACTAM 3.375 G in DEXT 5% WATER 100 ML IV SCH ×5 (01:27→23:12)
[2020-01-04] MEDS: IPRATROPIUM/ALBUTEROL 0.5-3(2.5)MG/3ML NEB HHN SCH ×5 (03:00→21:41)
[2020-01-04 04:00] VITALS: BP 133/55
[2020-01-04] MEDS: MORPHINE SULFATE 2 MG/ML CPJ (NOT FOR IM USE) IV PRN ×4 (05:42→23:02)
[2020-01-04 07:17] LABS: HEMATOCRIT. 32.4 % (36.0-48.0); MEAN CORPUSCULAR HEMOGLOBIN 24.1 pg (28.0-32.0); MEAN PLATELET VOLUME 8.7 fl (7.4-10.4); PLATELET 211 x1000/uL (130-400); RED BLOOD CELL COUNT 4.15 mill/uL (4.2-5.4); RED CELL DISTRIBUTION WIDTH 17.7 % (11.6-14.6)
[2020-01-04 07:42] LABS: CHLORIDE 102 mEq/L (98-107); T4 FREE 1.14 ng/dL (0.76-1.46)
[2020-01-04 08:00] VITALS: BP 136/51
[2020-01-04] MEDS ORDERED: INSULIN LISPRO 100 UNITS/ML SUBCUT SCH (08:10)
[2020-01-04] MEDS: METHYLPREDNISOLONE SOD SUCC 40 MG/ML VIAL IV SCH ×2 (08:10→20:33)
[2020-01-04] MEDS: BLOOD SUGAR DIAGNOSTIC STRIP TEST SCH ×4 (08:15→20:15)
[2020-01-04] MEDS: PANTOPRAZOLE 40MG DR TABLET PO SCH (08:15)
[2020-01-04] MEDS ORDERED: ENOXAPARIN 30MG/0.3ML SYR SUBCUT SCH (09:00)
[2020-01-04 11:32] LABS: BG BASE EXCESS 2.3 mmol/L (-2.0-2.0); BG CARBOXYHEMOGLOBIN 0.2 % (0.5-1.5); BG DEOXYHEMOGLOBIN 8.4 % (0.0-5.0); BG FRACTION INSPIRED OXYGEN 21; BG HCO3 ACT 27.1 mmol/L (22.0-26.0); BG METHEMOGLOBIN 0.3 % (0.0-1.5); BG OXYGEN SATURATION 91.6 % (92.0-98.5); BG OXYHEMOGLOBIN 91.1 % (94.0-97.0); BG PCO2 43.1 mmHg (35.0-45.0); BG PH 7.417 (7.350-7.450); BG PO2 62.1 mmHg (75.0-100.0); BG SAMPLE SITE RIGHT RADIAL; BG TOTAL HEMOGLOBIN 10.5 g/dL (12.0-18.0); BG VENT MODE ROOM AIR
[2020-01-04 12:00] VITALS: BP 147/60
[2020-01-04] MEDS ORDERED: INSULIN GLARGINE UD 100 UNITS/ML SYR SUBCUT NR (12:00)
[2020-01-04] MEDS: INSULIN LISPRO 100 UNITS/ML SUBCUT SCH ×3 (13:54→20:33)
[2020-01-04] MEDS ORDERED: LACTULOSE 20G/30ML UDC PO PRN (14:30)
[2020-01-04] MEDS ORDERED: HYDROCODONE/ACETAMINOPHEN 5/325MG TABLET PO PRN (14:30)
[2020-01-04 18:02] LABS: HEMATOCRIT 33.2 % (36.0-48.0); HEMOGLOBIN 10.4 g/dL (12.0-16.0)
[2020-01-04 20:44] VITALS: BP 133/52
[2020-01-05] VITALS: BP 90/54
[2020-01-05] MEDS: IPRATROPIUM/ALBUTEROL 0.5-3(2.5)MG/3ML NEB HHN SCH ×6 (01:05→21:28)
[2020-01-05 04:00] VITALS: BP 117/72
[2020-01-05 04:36] LABS: PLATELET ESTIMATE NORMAL
[2020-01-05] MEDS: PIPERACILLIN/TAZOBACTAM 3.375 G in DEXT 5% WATER 100 ML IV SCH ×4 (05:33→23:21)
[2020-01-05] MEDS: MORPHINE SULFATE 2 MG/ML CPJ (NOT FOR IM USE) IV PRN ×4 (05:33→21:51)
[2020-01-05] MEDS: INSULIN LISPRO 100 UNITS/ML SUBCUT SCH ×4 (06:00→21:37)
[2020-01-05 06:51] LABS: HEMATOCRIT. 32.6 % (36.0-48.0); HEMOGLOBIN. 10.3 g/dL (12.0-16.0); MEAN CORPUSCULAR HEMOGLOBIN 24.6 pg (28.0-32.0); MEAN CORPUSCULAR VOLUME 78.1 fL (81.0-99.0); MEAN PLATELET VOLUME 9.1 fl (7.4-10.4); PLATELET 248 x1000/uL (130-400); RED BLOOD CELL COUNT 4.17 mill/uL (4.2-5.4); RED CELL DISTRIBUTION WIDTH 17.9 % (11.6-14.6)
[2020-01-05 07:11] LABS: CHLORIDE 101 mEq/L (98-107)
[2020-01-05] MEDS: BLOOD SUGAR DIAGNOSTIC STRIP TEST SCH ×4 (07:54→21:00)
[2020-01-05 08:00] VITALS: BP 143/66
[2020-01-05] MEDS: METHYLPREDNISOLONE SOD SUCC 40 MG/ML VIAL IV SCH (08:06)
[2020-01-05] MEDS: PANTOPRAZOLE 40MG DR TABLET PO SCH (08:06)
[2020-01-05 10:40] LABS: NUCLEATED RED BLOOD CELLS 1 /100 WBC
[2020-01-05 10:41] LABS: PLATELET ESTIMATE NORMAL
[2020-01-05 12:00] VITALS: BP 154/59
[2020-01-05] MEDS: INSULIN GLARGINE UD 100 UNITS/ML SYR SUBCUT SCH (12:22)
[2020-01-05] MEDS ORDERED: HYDROCODONE/ACETAMINOPHEN 5/325MG TABLET PO PRN (13:00)
[2020-01-05] MEDS ORDERED: KETOROLAC 15MG/ML VIAL IV NR (13:00)
[2020-01-05] MEDS ORDERED: KETOROLAC 15MG/ML VIAL IV PRN (13:00)
[2020-01-05 16:00] VITALS: BP 154/59
[2020-01-05 20:00] VITALS: BP 142/67
[2020-01-05] MEDS ORDERED: INSULIN GLARGINE UD 100 UNITS/ML SYR SUBCUT ONE (21:00)
[2020-01-05] MEDS ORDERED: INSULIN GLARGINE UD 100 UNITS/ML SYR SUBCUT SCH (22:00)
[2020-01-06] VITALS (7 sets, daily range): BP systolic 140–163; BP diastolic 52–86
[2020-01-06] MEDS: MORPHINE SULFATE 2 MG/ML CPJ (NOT FOR IM USE) IV PRN ×2 (02:14→09:19)
[2020-01-06] MEDS: IPRATROPIUM/ALBUTEROL 0.5-3(2.5)MG/3ML NEB HHN SCH ×5 (04:00→16:30)
[2020-01-06] MEDS: PIPERACILLIN/TAZOBACTAM 3.375 G in DEXT 5% WATER 100 ML IV SCH ×3 (05:10→11:57)
[2020-01-06] MEDS: BLOOD SUGAR DIAGNOSTIC STRIP TEST SCH ×2 (07:40→11:45)
[2020-01-06] MEDS: PANTOPRAZOLE 40MG DR TABLET PO SCH (07:40)
[2020-01-06] MEDS ORDERED: METHYLPREDNISOLONE SOD SUCC 40 MG/ML VIAL IV SCH (09:00)
[2020-01-06] MEDS: INSULIN LISPRO 100 UNITS/ML SUBCUT SCH ×2 (09:20→12:15)
[2020-01-06] MEDS: INSULIN GLARGINE UD 100 UNITS/ML SYR SUBCUT SCH (10:00)
[2020-01-06] MEDS ORDERED: HYDR-4001 MT (13:38)
[2020-01-06] MEDS ORDERED: METO-293 MT (13:38)
[2020-01-06] MEDS ORDERED: LORAZEPAM 0.5MG TABLET PO PRN (13:45)
[2020-01-06] MEDS ORDERED: METOCLOPRAMIDE HCL 10MG/2ML VIAL IV SCH (18:00)
[2020-01-06] MEDS ORDERED: FAMOTIDINE 20MG TABLET PO SCH (21:00)
== END 2020-01-06 16:57 | disposition home or self-care (01) | DRG 73 ==
LOC: ER 11:21 → 7WST 13:30 → EDBEDREQTM 13:31 → EDBEDREQ 13:31 → ENRESERV 20:14
PROVIDERS: ADMIT Internal Medicine; ATTEND Internal Medicine
DX: E11.43 Type 2 diabetes mellitus with diabetic autonomic (poly)neuropathy (principal); J96.02 Acute respiratory failure with hypercapnia; K91.870 Postprocedural hematoma of a digestive system organ or structure following a digestive system procedure; J95.89 Other postprocedural complications and disorders of respiratory system, not elsewhere classified; J45.901 Unspecified asthma with (acute) exacerbation; N39.0 Urinary tract infection, site not specified; J98.11 Atelectasis; J90 Pleural effusion, not elsewhere classified; G89.18 Other acute postprocedural pain; D25.9 Leiomyoma of uterus, unspecified; E11.65 Type 2 diabetes mellitus with hyperglycemia; E86.0 Dehydration; Y83.8 Other surgical procedures as the cause of abnormal reaction of the patient, or of later complication, without mention of misadventure at the time of the procedure; K31.84 Gastroparesis; I11.9 Hypertensive heart disease without heart failure; K76.0 Fatty (change of) liver, not elsewhere classified; K74.60 Unspecified cirrhosis of liver; R79.89 Other specified abnormal findings of blood chemistry; Z91.19 Patient's noncompliance with other medical treatment and regimen; Z87.442 Personal history of urinary calculi; Z90.49 Acquired absence of other specified parts of digestive tract; Y92.89 Other specified places as the place of occurrence of the external cause
CPT/HCPCS: 36415; 36600; 71045; 71275; 74018; 74176; 76705; 80048; 80053; 81003; 82375; 82805; 82962; 83036; 83605; 83880; 84439; 84443; 84484; 85014; 85018; 85025; 85379; 86850; 86900; 87106; 93005; 93970; 94640; 96374; 97116; 97162; 97535; 99291; J1650; J1815; J1885; J2270; J2405; J2543; J2920; J2930; J7060; Q9967

== ENCOUNTER 2020-03-31 09:07 | Inpatient (IN) | payer MEDICARE, MEDICAID ==
[2020-03-31] VITALS (7 sets, daily range): BP systolic 115–158; BP diastolic 45–138
[~2020-03-31] VITALS: Ht 165.1 cm; Wt 100.7 kg
[~2020-03-31 09:07] MED LIST changes: -HYDR-4009 MT; +METO-293 MT
[2020-03-31] MEDS ORDERED: FAMOTIDINE 20MG/2ML VIAL IV ONE (10:30)
[2020-03-31] MEDS ORDERED: ASPIRIN 81MG TABLET PO ONE (10:30)
[2020-03-31] MEDS ORDERED: FAMOTIDINE 20MG/2ML VIAL IV SCH (10:30)
[2020-03-31] MEDS ORDERED: NITROGLYCERIN OINT 1GM/INCH UDPKT TD ONE (10:30)
[2020-03-31] MEDS ORDERED: FUROSEMIDE 40MG/4ML VIAL IV ONE (10:30)
[2020-03-31 11:07] LABS: BASOPHILS % 0.6 % (0.0-2.0); HEMATOCRIT. 29.2 % (36.0-48.0); HEMOGLOBIN. 9.4 g/dL (12.0-16.0); MEAN CORPUSCULAR HEMOGLOBIN 24.5 pg (28.0-32.0); MEAN CORPUSCULAR VOLUME 75.6 fL (81.0-99.0); MEAN PLATELET VOLUME 8.3 fl (7.4-10.4); MONOCYTES % 9.8 % (2.0-8.0); NEUTROPHILS % 68.6 % (40.0-76.0); PLATELET 241 x1000/uL (130-400); RED BLOOD CELL COUNT 3.85 mill/uL (4.2-5.4); RED CELL DISTRIBUTION WIDTH 18.3 % (11.6-14.6)
[2020-03-31 11:10] LABS: BG BASE EXCESS 3.9 mmol/L (-2.0-2.0); BG CARBOXYHEMOGLOBIN 0.3 % (0.5-1.5); BG DEOXYHEMOGLOBIN 1.1 % (0.0-5.0); BG FRACTION INSPIRED OXYGEN 44; BG HCO3 ACT 28.9 mmol/L (22.0-26.0); BG METHEMOGLOBIN 0.5 % (0.0-1.5); BG OXYGEN SATURATION 98.9 % (92.0-98.5); BG OXYHEMOGLOBIN 98.1 % (94.0-97.0); BG PCO2 45.7 mmHg (35.0-45.0); BG PH 7.419 (7.350-7.450); BG PO2 183.1 mmHg (75.0-100.0); BG SAMPLE SITE RIGHT BRACHIAL; BG TOTAL HEMOGLOBIN 9.9 g/dL (12.0-18.0); BG VENT MODE NASAL CANNULA
[2020-03-31 11:15] LABS: CHLORIDE 103 mEq/L (98-107)
[2020-03-31 11:18] LABS: D-DIMER 0.54 mg/L FEU (<0.50); INR 1.1; PROTHROMBIN TIME 12.3 sec (9.6-11.0)
[2020-03-31] MEDS ORDERED: IPRATROPIUM/ALBUTEROL 0.5-3(2.5)MG/3ML NEB ORI PRN (13:45)
[2020-03-31] MEDS ORDERED: DEXTROSE 50% WATER 50ML SYRINGE IV PRN (13:45)
[2020-03-31] MEDS ORDERED: GUAIFENESIN 200MG/10ML SUGAR FREE UDC PO PRN (13:45)
[2020-03-31] MEDS ORDERED: ONDANSETRON HCL 4MG/2ML INJ IV PRN (13:45)
[2020-03-31] MEDS ORDERED: NITROGLYCERIN 0.4MG TABLET SL SL PRN (13:45)
[2020-03-31] MEDS ORDERED: CLONIDINE 0.1MG TABLET PO PRN (13:45)
[2020-03-31] MEDS ORDERED: ACETAMINOPHEN 325MG TABLET PO PRN (13:45)
[2020-03-31] MEDS: ENOXAPARIN 40MG/0.4ML SYR SUBCUT SCH (14:35)
[2020-03-31] MEDS: GUAIFENESIN/DM 600MG/30MG ER TAB 12HR PO SCH ×2 (14:35→20:52)
[2020-03-31 15:16] LABS: LDL CHOLESTEROL 51 mg/dL (5-100)
[2020-03-31 15:17] LABS: HDL CHOLESTEROL 110 mg/dL (40-59)
[2020-03-31 15:18] LABS: CREATINE KINASE 43 IU/L (26-192)
[2020-03-31 15:19] LABS: CREATINE KINASE MB FRACTION < 1.0 ng/mL (0.5-3.6)
[2020-03-31 15:20] LABS: TOTAL IRON BINDING CAPACITY 356 ug/dL (250-450)
[2020-03-31 15:30] LABS: FOLIC ACID (FOLATE) SERUM 10.9 ng/mL (>5.38)
[2020-03-31 15:46] LABS: *AMPHETAMINES SCREEN URINE NEGATIVE (NEGATIVE); *BARBITURATES SCREEN URINE NEGATIVE (NEGATIVE); *BENZODIAZEPINES SCREEN URINE NEGATIVE (NEGATIVE); *COCAINE SCREEN URINE NEGATIVE (NEGATIVE); METHADONE URINE SCREEN NEGATIVE (NEGATIVE); OPIATES URINE SCREEN NEGATIVE (NEGATIVE)
[2020-03-31 15:47] LABS: CANNABINOID URINE SCREEN NEGATIVE (NEGATIVE); PHENCYCLIDINE URINE SCREEN NEGATIVE (NEGATIVE)
[2020-03-31] MEDS ORDERED: FURO40TA5 MT (16:25)
[2020-03-31] MEDS ORDERED: SPIR25TA6 MT (16:25)
[2020-03-31] MEDS: BLOOD SUGAR DIAGNOSTIC STRIP TEST SCH ×2 (16:33→20:56)
[2020-03-31] MEDS: FUROSEMIDE 40MG/4ML VIAL IVP SCH (17:03)
[2020-03-31] MEDS: CARVEDILOL 3.125 MG TABLET PO SCH (17:04)
[2020-03-31] MEDS: SPIRONOLACTONE 25MG TABLET PO SCH (17:04)
[2020-03-31] MEDS: INSULIN LISPRO 100 UNITS/ML SUBCUT SCH ×2 (17:11→21:02)
[2020-03-31] MEDS: LEVOFLOXACIN 500MG PREMIX 100 ML IV SCH (17:35)
[2020-03-31] MEDS: ASCORBIC ACID 500 MG TABLET PO SCH (20:52)
[2020-03-31] MEDS: MAGNESIUM/ALUMINUM HYDROXIDE/SIMETHICONE 30ML UDC PO PRN (20:53)
[2020-03-31] MEDS: FAMOTIDINE 20MG TABLET PO SCH (20:53)
[2020-03-31] MEDS: ZOLPIDEM TARTRATE 5MG TABLET PO PRN (21:38)
[2020-03-31 23:54] LABS: CREATINE KINASE 42 IU/L (26-192)
[2020-03-31 23:55] LABS: CREATINE KINASE MB FRACTION < 1.0 ng/mL (0.5-3.6)
[2020-03-31] MEDS: TRAMADOL 50MG TABLET PO PRN (23:59)
[2020-04-01] VITALS (19 sets, daily range): BP systolic 116–162; BP diastolic 34–99
[2020-04-01] MEDS: BLOOD SUGAR DIAGNOSTIC STRIP TEST SCH ×4 (05:34→21:32)
[2020-04-01] MEDS: FUROSEMIDE 40MG/4ML VIAL IVP SCH ×2 (05:36→16:57)
[2020-04-01] MEDS: SPIRONOLACTONE 25MG TABLET PO SCH ×2 (05:36→16:56)
[2020-04-01] MEDS: CARVEDILOL 3.125 MG TABLET PO SCH ×2 (05:36→16:56)
[2020-04-01] MEDS: DOCUSATE SODIUM 100MG CAPSULE PO PRN (08:31)
[2020-04-01] MEDS: ZINC SULFATE 220 MG ( 50 ) CAPSULE PO SCH (08:31)
[2020-04-01] MEDS: ASCORBIC ACID 500 MG TABLET PO SCH ×2 (08:31→21:24)
[2020-04-01] MEDS: ASPIRIN 325MG EC TABLET PO SCH (08:31)
[2020-04-01] MEDS: FAMOTIDINE 20MG TABLET PO SCH ×2 (08:31→21:25)
[2020-04-01] MEDS: ENOXAPARIN 40MG/0.4ML SYR SUBCUT SCH (08:32)
[2020-04-01] MEDS: INSULIN LISPRO 100 UNITS/ML SUBCUT SCH ×4 (08:34→21:00)
[2020-04-01] MEDS: GUAIFENESIN/DM 600MG/30MG ER TAB 12HR PO SCH ×2 (09:00→21:25)
[2020-04-01] MEDS: ACETAMINOPHEN 325MG TABLET PO PRN ×2 (11:37→23:59)
[2020-04-01] MEDS: TRAMADOL 50MG TABLET PO PRN ×2 (14:10→21:26)
[2020-04-01] MEDS: MAGNESIUM/ALUMINUM HYDROXIDE/SIMETHICONE 30ML UDC PO PRN (14:10)
[2020-04-01] MEDS: LEVOFLOXACIN 500MG PREMIX 100 ML IV SCH (16:56)
[2020-04-01] MEDS: ZOLPIDEM TARTRATE 5MG TABLET PO PRN (23:59)
[2020-04-02] VITALS (16 sets, daily range): BP systolic 109–165; BP diastolic 44–98
[2020-04-02] MEDS: CARVEDILOL 3.125 MG TABLET PO SCH ×2 (05:35→17:40)
[2020-04-02] MEDS: SPIRONOLACTONE 25MG TABLET PO SCH (05:35)
[2020-04-02] MEDS: FUROSEMIDE 40MG/4ML VIAL IVP SCH (05:35)
[2020-04-02] MEDS: BLOOD SUGAR DIAGNOSTIC STRIP TEST SCH ×4 (05:42→20:24)
[2020-04-02] MEDS: FAMOTIDINE 20MG TABLET PO SCH ×2 (08:34→20:16)
[2020-04-02] MEDS: GUAIFENESIN/DM 600MG/30MG ER TAB 12HR PO SCH ×2 (08:34→20:16)
[2020-04-02] MEDS: ASPIRIN 325MG EC TABLET PO SCH (08:34)
[2020-04-02] MEDS: ZINC SULFATE 220 MG ( 50 ) CAPSULE PO SCH (08:34)
[2020-04-02] MEDS: ASCORBIC ACID 500 MG TABLET PO SCH ×2 (08:34→20:16)
[2020-04-02] MEDS: ENOXAPARIN 30MG/0.3ML SYR SUBCUT SCH ×2 (08:34→20:17)
[2020-04-02] MEDS: DOCUSATE SODIUM 100MG CAPSULE PO PRN (08:34)
[2020-04-02] MEDS: INSULIN LISPRO 100 UNITS/ML SUBCUT SCH ×4 (08:50→20:36)
[2020-04-02] MEDS: TRAMADOL 50MG TABLET PO PRN (15:09)
[2020-04-02] MEDS: LEVOFLOXACIN 500MG PREMIX 100 ML IV SCH (17:41)
[2020-04-02] MEDS ORDERED: BUTALBITAL/ACETAMINOPHEN/CAFFEINE 50/325/40MG TABLET PO NR (18:15)
[2020-04-02] MEDS: ZOLPIDEM TARTRATE 5MG TABLET PO PRN (22:36)
[2020-04-03] VITALS (12 sets, daily range): BP systolic 117–170; BP diastolic 49–70
[2020-04-03] MEDS: CARVEDILOL 3.125 MG TABLET PO SCH (05:35)
[2020-04-03] MEDS: BLOOD SUGAR DIAGNOSTIC STRIP TEST SCH ×2 (05:37→12:16)
[2020-04-03] MEDS: BUTALBITAL/ACETAMINOPHEN/CAFFEINE 50/325/40MG TABLET PO PRN ×2 (06:52→10:52)
[2020-04-03] MEDS: INSULIN LISPRO 100 UNITS/ML SUBCUT SCH ×2 (07:41→12:56)
[2020-04-03] MEDS: ASCORBIC ACID 500 MG TABLET PO SCH (07:43)
[2020-04-03] MEDS: ZINC SULFATE 220 MG ( 50 ) CAPSULE PO SCH (07:43)
[2020-04-03] MEDS: FAMOTIDINE 20MG TABLET PO SCH (07:43)
[2020-04-03] MEDS: ASPIRIN 325MG EC TABLET PO SCH (07:44)
[2020-04-03] MEDS: GUAIFENESIN/DM 600MG/30MG ER TAB 12HR PO SCH (07:44)
[2020-04-03] MEDS: ENOXAPARIN 30MG/0.3ML SYR SUBCUT SCH (07:44)
[2020-04-04] MEDS ORDERED: LEVOFLOXACIN 500MG TABLET PO SCH (11:00)
== END 2020-04-03 15:51 | disposition home health service (06) | DRG 291 ==
LOC: ER 09:07 → 3WST 13:10 → EDBEDREQTM 13:13 → EDBEDREQ 13:13 → SUPCPDRO 13:36 → ENRESERV 15:43
PROVIDERS: ADMIT Internal Medicine; ATTEND Internal Medicine
DX: I11.0 Hypertensive heart disease with heart failure (principal); J96.01 Acute respiratory failure with hypoxia; J96.02 Acute respiratory failure with hypercapnia; J44.1 Chronic obstructive pulmonary disease with (acute) exacerbation; I50.33 Acute on chronic diastolic (congestive) heart failure; D63.8 Anemia in other chronic diseases classified elsewhere; E11.9 Type 2 diabetes mellitus without complications; I27.20 Pulmonary hypertension, unspecified; E66.9 Obesity, unspecified; Z79.891 Long term (current) use of opiate analgesic; Z79.4 Long term (current) use of insulin; Z79.899 Other long term (current) drug therapy; Z87.442 Personal history of urinary calculi; Z90.49 Acquired absence of other specified parts of digestive tract; Z68.37 Body mass index [BMI] 37.0-37.9, adult
CPT/HCPCS: 36415; 36600; 71045; 80053; 80061; 80305; 82375; 82550; 82553; 82607; 82746; 82805; 82962; 83036; 83540; 83550; 83880; 84484; 85025; 85379; 93005; 93306; 93970; 97162; 97166; 97530; 99285; J1650; J1815; J1940; J1956; J3490

== ENCOUNTER 2020-05-16 07:21 | Inpatient (IN) | payer MEDICARE, MEDICAID ==
[~2020-05-16] VITALS: Ht 165.1 cm; Wt 99.8 kg
[~2020-05-16 07:21] MED LIST changes: +FURO40TA5 MT; +SPIR25TA6 MT
[2020-05-16 08:05] LABS: BASOPHILS % 0.6 % (0.0-2.0); EOSINOPHILS % 11.5 % (0.0-5.0); HEMATOCRIT. 27.5 % (36.0-48.0); HEMOGLOBIN. 8.7 g/dL (12.0-16.0); LYMPHOCYTES % 8.7 % (20.0-50.0); MEAN CORPUSCULAR HEMOGLOBIN 23.4 pg (28.0-32.0); MEAN CORPUSCULAR VOLUME 74.4 fL (81.0-99.0); MEAN PLATELET VOLUME 7.8 fl (7.4-10.4); MONOCYTES % 9.6 % (2.0-8.0); NEUTROPHILS % 69.6 % (40.0-76.0); PLATELET 220 x1000/uL (130-400); RED CELL DISTRIBUTION WIDTH 17.1 % (11.6-14.6)
[2020-05-16 08:12] LABS: CHLORIDE 102 mEq/L (98-107)
[2020-05-16] MEDS ORDERED: ENALAPRIL 1.25MG/ML VIAL 1ML IV NR (09:30)
[2020-05-16] MEDS ORDERED: FUROSEMIDE 40MG/4ML VIAL IVP ONE (09:30)
[2020-05-16] MEDS ORDERED: ENALAPRIL 2.5MG/2ML VIAL 2ML IV ONE (09:30)
[2020-05-16 09:37] LABS: BG CARBOXYHEMOGLOBIN 0.6 % (0.5-1.5); BG DEOXYHEMOGLOBIN 5.3 % (0.0-5.0); BG FRACTION INSPIRED OXYGEN 21; BG METHEMOGLOBIN 0.3 % (0.0-1.5); BG OXYGEN SATURATION 94.7 % (92.0-98.5); BG OXYHEMOGLOBIN 93.8 % (94.0-97.0); BG PCO2 35.6 mmHg (35.0-45.0); BG PH 7.429 (7.350-7.450); BG PO2 75.7 mmHg (75.0-100.0); BG SAMPLE SITE RIGHT RADIAL; BG TOTAL HEMOGLOBIN 9.9 g/dL (12.0-18.0); BG VENT MODE ROOM AIR
[2020-05-16] MEDS ORDERED: DIPHENHYDRAMINE 50MG/ML VIAL IV PRN (13:15)
[2020-05-16] MEDS ORDERED: CLONIDINE 0.1MG TABLET PO PRN (13:15)
[2020-05-16] MEDS ORDERED: IPRATROPIUM/ALBUTEROL 0.5-3(2.5)MG/3ML NEB HHN PRN (13:15)
[2020-05-16] MEDS ORDERED: ONDANSETRON HCL 4MG/2ML INJ IV PRN (13:15)
[2020-05-16 13:25] LABS: PHOSPHORUS 3.1 mg/dL (2.5-4.9)
[2020-05-16] MEDS: ACETAMINOPHEN 325MG TABLET PO PRN ×2 (14:30→23:37)
[2020-05-16 15:12] LABS: TOTAL IRON BINDING CAPACITY 378 ug/dL (250-450)
[2020-05-16] MEDS: AMLODIPINE 2.5MG TABLET PO SCH (21:10)
[2020-05-16] MEDS ORDERED: DEXTROSE 50% WATER 50ML SYRINGE IV PRN (23:00)
[2020-05-16] MEDS ORDERED: BLOOD SUGAR DIAGNOSTIC STRIP TEST SCH (23:00)
[2020-05-16] MEDS: INSULIN LISPRO (MEDIUM DOSE) 100 UNITS/ML SUBCUT SCH (23:36)
[2020-05-16] MEDS ORDERED: ACETAMINOPHEN 325MG TABLET PO PRN (23:45)
[2020-05-17 05:03] LABS: CHLORIDE 102 mEq/L (98-107); HDL CHOLESTEROL 79 mg/dL (40-59); LDL CHOLESTEROL 59 mg/dL (5-100)
[2020-05-17 05:04] LABS: BASOPHILS % 0.4 % (0.0-2.0); EOSINOPHILS % 7.5 % (0.0-5.0); HEMATOCRIT. 27.1 % (36.0-48.0); HEMOGLOBIN. 8.6 g/dL (12.0-16.0); MEAN CORPUSCULAR HEMOGLOBIN 23.6 pg (28.0-32.0); MEAN CORPUSCULAR VOLUME 74.5 fL (81.0-99.0); MONOCYTES % 10.6 % (2.0-8.0); NEUTROPHILS % 67.5 % (40.0-76.0); PLATELET 193 x1000/uL (130-400); RED BLOOD CELL COUNT 3.63 mill/uL (4.2-5.4); RED CELL DISTRIBUTION WIDTH 17.8 % (11.6-14.6)
[2020-05-17] MEDS ORDERED: POTASSIUM CHLORIDE 10MEQ TABLET SR PO ONE (08:22)
[2020-05-17] MEDS ORDERED: FUROSEMIDE 40MG/4ML VIAL ONE (08:22)
[2020-05-17] MEDS: FUROSEMIDE 40MG/4ML VIAL IV SCH (08:33)
[2020-05-17] MEDS: POTASSIUM CHLORIDE 10MEQ TABLET SR PO SCH (08:33)
[2020-05-17] MEDS ORDERED: INSULIN LISPRO 100 UNITS/ML SUBCUT ONE (09:04)
[2020-05-17] MEDS: INSULIN LISPRO (MEDIUM DOSE) 100 UNITS/ML SUBCUT SCH (09:05)
[2020-05-17] MEDS ORDERED: ONDANSETRON HCL 4MG/2ML INJ ONE (09:53)
[2020-05-17] MEDS ORDERED: HYDROCODONE/ACETAMINOPHEN 5/325MG TABLET ONE (09:53)
[2020-05-17] MEDS: HYDROCODONE/ACETAMINOPHEN 5/325MG TABLET PO PRN ×2 (10:07→20:09)
[2020-05-17] MEDS ORDERED: POTASSIUM CHLORIDE 20MEQ TABLET SR PO NR (12:00)
[2020-05-17 13:46] VITALS: BP 130/59
[2020-05-17 13:49] VITALS: BP 130/59
[2020-05-17 16:00] VITALS: BP 125/57
[2020-05-17] MEDS ORDERED: DEXTROSE 50% WATER 50ML SYRINGE IV PRN (17:00)
[2020-05-17] MEDS: BLOOD SUGAR DIAGNOSTIC STRIP TEST SCH ×2 (17:10→20:25)
[2020-05-17] MEDS: INSULIN LISPRO 100 UNITS/ML SUBCUT SCH ×2 (17:40→20:43)
[2020-05-17 20:00] VITALS: BP 128/56
[2020-05-17] MEDS: AMLODIPINE 2.5MG TABLET PO SCH (20:43)
[2020-05-18] VITALS: BP 140/50
[2020-05-18 04:00] VITALS: BP 153/57
[2020-05-18] MEDS: BLOOD SUGAR DIAGNOSTIC STRIP TEST SCH ×4 (05:45→20:25)
[2020-05-18] MEDS: HYDROCODONE/ACETAMINOPHEN 5/325MG TABLET PO PRN ×3 (05:49→23:36)
[2020-05-18] MEDS: INSULIN LISPRO 100 UNITS/ML SUBCUT SCH ×4 (06:26→21:00)
[2020-05-18 07:48] LABS: BASOPHILS % 0.6 % (0.0-2.0); EOSINOPHILS % 12.9 % (0.0-5.0); HEMATOCRIT. 27.2 % (36.0-48.0); HEMOGLOBIN. 8.5 g/dL (12.0-16.0); LYMPHOCYTES % 13.7 % (20.0-50.0); MEAN CORPUSCULAR HEMOGLOBIN 23.6 pg (28.0-32.0); MEAN CORPUSCULAR VOLUME 75.2 fL (81.0-99.0); MEAN PLATELET VOLUME 7.9 fl (7.4-10.4); MONOCYTES % 10.5 % (2.0-8.0); NEUTROPHILS % 62.3 % (40.0-76.0); PLATELET 210 x1000/uL (130-400); RED BLOOD CELL COUNT 3.62 mill/uL (4.2-5.4); RED CELL DISTRIBUTION WIDTH 17.6 % (11.6-14.6)
[2020-05-18 07:52] LABS: CHLORIDE 102 mEq/L (98-107)
[2020-05-18 08:00] VITALS: BP 129/51
[2020-05-18] MEDS: AMLODIPINE 2.5MG TABLET PO SCH ×2 (08:42→20:36)
[2020-05-18] MEDS: POTASSIUM CHLORIDE 10MEQ TABLET SR PO SCH (08:42)
[2020-05-18] MEDS: FUROSEMIDE 40MG/4ML VIAL IV SCH (09:51)
[2020-05-18 12:00] VITALS: BP 120/54
[2020-05-18 16:00] VITALS: BP 129/52
[2020-05-18 20:00] VITALS: BP 146/61
[2020-05-19 04:00] VITALS: BP 141/59
[2020-05-19] MEDS: HYDROCODONE/ACETAMINOPHEN 5/325MG TABLET PO PRN ×2 (05:18→12:55)
[2020-05-19] MEDS: BLOOD SUGAR DIAGNOSTIC STRIP TEST SCH ×2 (06:14→11:31)
[2020-05-19 07:55] LABS: CHLORIDE 101 mEq/L (98-107)
[2020-05-19 08:00] VITALS: BP 128/57
[2020-05-19 08:04] LABS: BASOPHILS % 0.6 % (0.0-2.0); EOSINOPHILS % 14.3 % (0.0-5.0); HEMATOCRIT. 26.9 % (36.0-48.0); HEMOGLOBIN. 8.4 g/dL (12.0-16.0); LYMPHOCYTES % 15.6 % (20.0-50.0); MEAN CORPUSCULAR HEMOGLOBIN 23.6 pg (28.0-32.0); MEAN CORPUSCULAR VOLUME 75.5 fL (81.0-99.0); MONOCYTES % 12.6 % (2.0-8.0); NEUTROPHILS % 56.9 % (40.0-76.0); PLATELET 209 x1000/uL (130-400); RED BLOOD CELL COUNT 3.56 mill/uL (4.2-5.4); RED CELL DISTRIBUTION WIDTH 17.1 % (11.6-14.6)
[2020-05-19] MEDS: POTASSIUM CHLORIDE 10MEQ TABLET SR PO SCH (08:26)
[2020-05-19] MEDS: AMLODIPINE 2.5MG TABLET PO SCH (08:27)
[2020-05-19] MEDS: FUROSEMIDE 40MG/4ML VIAL IV SCH (08:27)
[2020-05-19] MEDS ORDERED: HYDR-4001 MT (10:39)
[2020-05-19] MEDS ORDERED: AMLO2.5T45 PO (10:39)
[2020-05-19] MEDS ORDERED: KDUR10 PO (10:39)
[2020-05-19] MEDS: INSULIN LISPRO 100 UNITS/ML SUBCUT SCH (11:30)
[2020-05-19 12:00] VITALS: BP 137/46
[2020-05-19 13:11] VITALS: BP 137/46
== END 2020-05-19 14:25 | disposition home or self-care (01) | DRG 292 ==
LOC: ER 07:36 → ENRESERV 21:04 → CANRESERV 21:04 → ENRESERV 05-17 11:56 → ER 05-17 13:04 → 8WST 05-17 13:28
PROVIDERS: ADMIT Internal Medicine; ATTEND Internal Medicine
DX: I11.0 Hypertensive heart disease with heart failure (principal); I31.3 Pericardial effusion (noninflammatory); I50.33 Acute on chronic diastolic (congestive) heart failure; I42.9 Cardiomyopathy, unspecified; E87.6 Hypokalemia; E11.9 Type 2 diabetes mellitus without complications; G47.33 Obstructive sleep apnea (adult) (pediatric); D50.9 Iron deficiency anemia, unspecified; I16.0 Hypertensive urgency; I27.20 Pulmonary hypertension, unspecified; E78.5 Hyperlipidemia, unspecified; J45.909 Unspecified asthma, uncomplicated; Z79.4 Long term (current) use of insulin; Z79.899 Other long term (current) drug therapy; Z87.442 Personal history of urinary calculi; Z90.49 Acquired absence of other specified parts of digestive tract; Z87.891 Personal history of nicotine dependence; Z03.818 Encounter for observation for suspected exposure to other biological agents ruled out; E66.09 Other obesity due to excess calories; Z68.36 Body mass index [BMI] 36.0-36.9, adult
CPT/HCPCS: 36415; 36600; 71045; 80048; 80053; 80061; 82375; 82728; 82805; 82962; 83036; 83540; 83550; 83735; 83880; 84100; 84443; 84484; 85025; 93005; 93970; 94640; 99285; J1815; J1940; J2405; J3490; C9803-CS; U0003-CS

== ENCOUNTER 2020-08-08 08:29 | Emergency (ER) | payer MEDICARE, MEDICAID ==
[~2020-08-08] VITALS: Ht 162.6 cm; Wt 87.0 kg
[~2020-08-08 08:29] MED LIST changes: +AMLO2.5T45 PO; -HYDR-4135 PO; +KDUR10 PO
[2020-08-08] MEDS ORDERED: ONDANSETRON HCL 4MG/2ML INJ IV STA (09:13)
[2020-08-08] MEDS ORDERED: MORPHINE SULFATE 4 MG/ML CPJ (NOT FOR IM USE) IV STA (09:13)
[2020-08-08 09:40] LABS: BASOPHILS % 0.8 % (0.0-2.0); EOSINOPHILS % 8.8 % (0.0-5.0); HEMATOCRIT. 28.2 % (36.0-48.0); HEMOGLOBIN. 8.9 g/dL (12.0-16.0); LYMPHOCYTES % 7.7 % (20.0-50.0); MEAN CORPUSCULAR HEMOGLOBIN 23.5 pg (28.0-32.0); MEAN CORPUSCULAR VOLUME 74.2 fL (81.0-99.0); MONOCYTES % 7.1 % (2.0-8.0); NEUTROPHILS % 75.6 % (40.0-76.0); PLATELET 217 x1000/uL (130-400); RED CELL DISTRIBUTION WIDTH 19.5 % (11.6-14.6)
[2020-08-08 09:47] LABS: CHLORIDE 111 mEq/L (98-107)
[2020-08-08 10:24] LABS: INR 1.2; PROTHROMBIN TIME 12.8 sec (9.6-11.0)
[2020-08-08 12:54] VITALS: BP 129/49
== END 2020-08-08 13:24 | disposition home or self-care (01) ==
LOC: ER 08:51
DX: R10.9 Unspecified abdominal pain (principal); J45.909 Unspecified asthma, uncomplicated; I11.0 Hypertensive heart disease with heart failure; I50.9 Heart failure, unspecified; E11.9 Type 2 diabetes mellitus without complications; Z79.4 Long term (current) use of insulin; Z90.49 Acquired absence of other specified parts of digestive tract; Z87.442 Personal history of urinary calculi
CPT/HCPCS: 36415; 74176; 80053; 83690; 85025; 85610; 93005; 96374; 96375; 99285; J2270; J2405

== ENCOUNTER 2021-01-21 09:57 | Inpatient (IN) | payer MEDICARE, MEDICAID ==
[~2021-01-21] VITALS: Ht 165.1 cm; Wt 98.9 kg
[2021-01-21] MEDS ORDERED: MORPHINE SULFATE 4 MG/ML CPJ (NOT FOR IM USE) IV STA (10:21)
[2021-01-21 11:24] LABS: EOSINOPHILS % 5.1 % (0.0-5.0); HEMATOCRIT. 29.7 % (36.0-48.0); HEMOGLOBIN. 8.9 g/dL (12.0-16.0); LYMPHOCYTES % 9.5 % (20.0-50.0); MEAN CORPUSCULAR HEMOGLOBIN 21.4 pg (28.0-32.0); MEAN CORPUSCULAR VOLUME 71.4 fL (81.0-99.0); MEAN PLATELET VOLUME 8.6 fl (7.4-10.4); MONOCYTES % 8.2 % (2.0-8.0); NEUTROPHILS % 76.2 % (40.0-76.0); PLATELET 195 x1000/uL (130-400); RED BLOOD CELL COUNT 4.16 mill/uL (4.2-5.4); RED CELL DISTRIBUTION WIDTH 19.7 % (11.6-14.6)
[2021-01-21 11:27] LABS: CHLORIDE 106 mEq/L (98-107)
[2021-01-21] MEDS ORDERED: ASPIRIN 325MG EC TABLET PO ONE (12:15)
[2021-01-21] MEDS ORDERED: ONDANSETRON HCL 4MG/2ML INJ IV ONE (12:45)
[2021-01-21] MEDS ORDERED: MORPHINE SULFATE 4 MG/ML CPJ (NOT FOR IM USE) IV ONE (12:45)
[2021-01-21] MEDS ORDERED: ACETAMINOPHEN 325MG TABLET PO PRN (15:30)
[2021-01-21] MEDS ORDERED: DOCUSATE SODIUM 100MG CAPSULE PO PRN (15:30)
[2021-01-21] MEDS ORDERED: MAGNESIUM/ALUMINUM HYDROXIDE/SIMETHICONE 30ML UDC PO PRN (15:30)
[2021-01-21] MEDS ORDERED: IPRATROPIUM/ALBUTEROL 0.5-3(2.5)MG/3ML NEB NEB PRN (15:30)
[2021-01-21] MEDS ORDERED: LORAZEPAM 0.5MG TABLET PO PRN (15:30)
[2021-01-21] MEDS ORDERED: ONDANSETRON HCL 4MG/2ML INJ IV PRN (15:30)
[2021-01-21] MEDS ORDERED: NA PHOS,M-B/NA PHOS,DI-BA ENEMA 118ML PR PRN (15:30)
[2021-01-21] MEDS ORDERED: DEXTROSE 50% WATER 50ML SYRINGE IV PRN (15:30)
[2021-01-21] MEDS ORDERED: ACETAMINOPHEN 650MG SUPP PR PRN (15:30)
[2021-01-21] MEDS: AMLODIPINE 5MG TABLET PO SCH (15:43)
[2021-01-21 16:00] VITALS: BP 185/71
[2021-01-21 16:06] LABS: BG BASE EXCESS 3.2 mmol/L (-2.0-2.0); BG CARBOXYHEMOGLOBIN 0.3 % (0.5-1.5); BG DEOXYHEMOGLOBIN 15.8 % (0.0-5.0); BG FRACTION INSPIRED OXYGEN 28; BG HCO3 ACT 29.8 mmol/L (22.0-26.0); BG METHEMOGLOBIN 0.4 % (0.0-1.5); BG OXYGEN SATURATION 84.1 % (92.0-98.5); BG OXYHEMOGLOBIN 83.5 % (94.0-97.0); BG PCO2 56.4 mmHg (35.0-45.0); BG PH 7.341 (7.350-7.450); BG PO2 52.9 mmHg (75.0-100.0); BG SAMPLE SITE LEFT RADIAL; BG TOTAL HEMOGLOBIN 9.9 g/dL (12.0-18.0); BG VENT MODE NASAL CANNULA
[2021-01-21] MEDS ORDERED: FUROSEMIDE 40MG/4ML VIAL IVP NR (16:15)
[2021-01-21] MEDS ORDERED: METHYLPREDNISOLONE SOD SUCC 40 MG/ML VIAL IV NR (16:15)
[2021-01-21] MEDS ORDERED: INSULIN GLARGINE UD 100 UNITS/ML SYR SUBCUT NR (16:15)
[2021-01-21] MEDS: BLOOD SUGAR DIAGNOSTIC STRIP TEST SCH ×2 (16:45→21:57)
[2021-01-21] MEDS: LOSARTAN POTASSIUM 25 MG TABLET PO SCH (17:02)
[2021-01-21 17:35] LABS: INR 1.2; PROTHROMBIN TIME 12.7 sec (9.6-11.0)
[2021-01-21] MEDS: INSULIN LISPRO 100 UNITS/ML SUBCUT SCH ×2 (18:34→21:57)
[2021-01-21] MEDS: METOCLOPRAMIDE HCL 10MG/2ML VIAL IV SCH ×2 (18:35→23:18)
[2021-01-21] MEDS: CLONIDINE 0.1MG TABLET PO PRN ×2 (18:35→23:22)
[2021-01-21 20:00] VITALS: BP 145/56
[2021-01-21 20:25] VITALS: BP 145/56
[2021-01-21] MEDS: IPRATROPIUM/ALBUTEROL 0.5-3(2.5)MG/3ML NEB HHN SCH (21:25)
[2021-01-21] MEDS: FAMOTIDINE 20MG TABLET PO SCH (21:55)
[2021-01-21] MEDS: NITROGLYCERIN OINT 1GM/INCH UDPKT TD SCH (21:56)
[2021-01-21] MEDS: HYDROCODONE/ACETAMINOPHEN 5/325MG TABLET PO PRN (21:56)
[2021-01-21 23:58] LABS: CREATINE KINASE 74 IU/L (26-192); CREATINE KINASE MB FRACTION 2.1 ng/mL (0.5-3.6)
[2021-01-22] VITALS (7 sets, daily range): BP systolic 111–170; BP diastolic 53–69
[2021-01-22] MEDS: IPRATROPIUM/ALBUTEROL 0.5-3(2.5)MG/3ML NEB HHN SCH ×3 (03:07→22:20)
[2021-01-22 05:22] LABS: CHLORIDE 105 mEq/L (98-107)
[2021-01-22 05:26] LABS: HEMATOCRIT. 27.5 % (36.0-48.0); HEMOGLOBIN. 8.2 g/dL (12.0-16.0); MEAN CORPUSCULAR HEMOGLOBIN 21.3 pg (28.0-32.0); MEAN CORPUSCULAR VOLUME 71.3 fL (81.0-99.0); MEAN PLATELET VOLUME 8.4 fl (7.4-10.4); PLATELET 177 x1000/uL (130-400); RED BLOOD CELL COUNT 3.86 mill/uL (4.2-5.4)
[2021-01-22 05:31] LABS: CREATINE KINASE 50 IU/L (26-192)
[2021-01-22 05:32] LABS: HDL CHOLESTEROL 91 mg/dL (40-59)
[2021-01-22 05:41] LABS: T4 FREE 1.07 ng/dL (0.76-1.46)
[2021-01-22 05:42] LABS: LDL CHOLESTEROL 54 mg/dL (5-100)
[2021-01-22] MEDS: NITROGLYCERIN OINT 1GM/INCH UDPKT TD SCH ×3 (06:08→20:07)
[2021-01-22] MEDS: METOCLOPRAMIDE HCL 10MG/2ML VIAL IV SCH ×3 (06:08→17:01)
[2021-01-22] MEDS: BLOOD SUGAR DIAGNOSTIC STRIP TEST SCH ×4 (06:15→20:06)
[2021-01-22] MEDS: INSULIN LISPRO 100 UNITS/ML SUBCUT SCH ×4 (06:16→20:07)
[2021-01-22] MEDS: DIPHENHYDRAMINE 50MG/ML VIAL IV PRN ×2 (06:19→21:05)
[2021-01-22] MEDS: HYDROCODONE/ACETAMINOPHEN 5/325MG TABLET PO PRN ×3 (06:19→20:57)
[2021-01-22] MEDS ORDERED: INSULIN GLARGINE UD 100 UNITS/ML SYR SUBCUT SCH (10:00)
[2021-01-22] MEDS: AMLODIPINE 5MG TABLET PO SCH (10:29)
[2021-01-22] MEDS: ASPIRIN 81MG EC TABLET PO SCH (10:29)
[2021-01-22] MEDS: LOSARTAN POTASSIUM 25 MG TABLET PO SCH (10:29)
[2021-01-22] MEDS ORDERED: INSULIN GLARGINE UD 100 UNITS/ML SYR SUBCUT NR (13:00)
[2021-01-22 13:40] LABS: PLATELET ESTIMATE NORMAL
[2021-01-22] MEDS ORDERED: CEFTRIAXONE 1 G PREMIX 50 ML IV SCH (13:45)
[2021-01-22] MEDS: AZITHROMYCIN 500 MG TABLET PO SCH (13:56)
[2021-01-22] MEDS: SILDENAFIL CITRATE 20MG TABLET PO SCH ×2 (13:56→20:06)
[2021-01-22] MEDS ORDERED: POTASSIUM CHLORIDE 20MEQ TABLET SR PO NR (14:30)
[2021-01-22] MEDS: DEXAMETHASONE 4MG TABLET PO SCH (14:52)
[2021-01-22] MEDS: CEFTRIAXONE 1,000 MG in DEXTROSE 5% WATER 50 ML IV SCH (14:57)
[2021-01-22] MEDS: FAMOTIDINE 20MG TABLET PO SCH (20:07)
[2021-01-22] MEDS: INSULIN GLARGINE UD 100 UNITS/ML SYR SUBCUT SCH (20:55)
[2021-01-22] MEDS ORDERED: IOHEXOL-350 100 ML BOTTLE ONE (23:22)
[2021-01-23] MEDS: METOCLOPRAMIDE HCL 10MG/2ML VIAL IV SCH ×4 (00:28→17:48)
[2021-01-23] MEDS: IPRATROPIUM/ALBUTEROL 0.5-3(2.5)MG/3ML NEB HHN SCH ×4 (01:06→22:02)
[2021-01-23 01:08] VITALS: BP 157/58
[2021-01-23 04:00] VITALS: BP 142/56
[2021-01-23] MEDS: DIPHENHYDRAMINE 50MG/ML VIAL IV PRN ×2 (04:20→22:28)
[2021-01-23] MEDS: HYDROCODONE/ACETAMINOPHEN 5/325MG TABLET PO PRN ×4 (04:24→22:42)
[2021-01-23] MEDS: GUAIFENESIN 200MG/10ML SUGAR FREE UDC PO PRN ×2 (04:32→10:49)
[2021-01-23] MEDS: BLOOD SUGAR DIAGNOSTIC STRIP TEST SCH ×4 (06:41→21:00)
[2021-01-23 06:54] LABS: HEMATOCRIT. 27.6 % (36.0-48.0); HEMOGLOBIN. 8.2 g/dL (12.0-16.0); MEAN CORPUSCULAR HEMOGLOBIN 21.2 pg (28.0-32.0); MEAN CORPUSCULAR VOLUME 71.5 fL (81.0-99.0); MEAN PLATELET VOLUME 8.3 fl (7.4-10.4); PLATELET 206 x1000/uL (130-400); RED BLOOD CELL COUNT 3.87 mill/uL (4.2-5.4); RED CELL DISTRIBUTION WIDTH 19.2 % (11.6-14.6)
[2021-01-23] MEDS: SILDENAFIL CITRATE 20MG TABLET PO SCH ×3 (07:07→22:22)
[2021-01-23] MEDS: NITROGLYCERIN OINT 1GM/INCH UDPKT TD SCH ×3 (07:07→22:22)
[2021-01-23 07:13] LABS: CHLORIDE 101 mEq/L (98-107)
[2021-01-23] MEDS: INSULIN LISPRO 100 UNITS/ML SUBCUT SCH ×4 (07:14→22:34)
[2021-01-23 07:19] LABS: TOTAL IRON BINDING CAPACITY 328 ug/dL (250-450)
[2021-01-23 08:00] VITALS: BP 147/67
[2021-01-23] MEDS: AMLODIPINE 5MG TABLET PO SCH (09:27)
[2021-01-23] MEDS: AZITHROMYCIN 500 MG TABLET PO SCH (09:27)
[2021-01-23] MEDS: ASPIRIN 81MG EC TABLET PO SCH (09:27)
[2021-01-23] MEDS: FERROUS SULFATE 325MG TABLET PO SCH ×2 (09:27→17:41)
[2021-01-23] MEDS: LOSARTAN POTASSIUM 25 MG TABLET PO SCH ×2 (09:27→22:21)
[2021-01-23] MEDS: DEXAMETHASONE 4MG TABLET PO SCH (09:28)
[2021-01-23] MEDS ORDERED: POTASSIUM CHLORIDE 20MEQ/PACKET PO SCH (09:30)
[2021-01-23 12:00] VITALS: BP 145/68
[2021-01-23 12:11] LABS: VITAMIN B12 SERUM 1420 pg/mL (211-911)
[2021-01-23] MEDS: INSULIN GLARGINE UD 100 UNITS/ML SYR SUBCUT SCH ×2 (12:20→22:35)
[2021-01-23 13:37] LABS: CLARITY URINE CLEAR (CLEAR); COLOR URINE YELLOW (YELLOW); KETONES URINE NEGATIVE (NEGATIVE); LEUKOCYTE ESTERASE URINE TRACE (NEGATIVE); NITRITE URINE NEGATIVE (NEGATIVE); OCCULT BLOOD URINE NEGATIVE (NEGATIVE); PROTEIN URINE TRACE (NEGATIVE); SPECIFIC GRAVITY URINE 1.033 (1.005-1.030); UROBILINOGEN URINE 0.2 E.U./dL (0.2-1.0)
[2021-01-23] MEDS ORDERED: POTASSIUM CHLORIDE 20MEQ TABLET SR PO SCH (14:15)
[2021-01-23] MEDS: CEFTRIAXONE 1,000 MG in DEXTROSE 5% WATER 50 ML IV SCH (14:30)
[2021-01-23] MEDS: FUROSEMIDE 40MG/4ML VIAL IVP SCH (14:33)
[2021-01-23] MEDS ORDERED: AMLO10TA4 MT (15:11)
[2021-01-23] MEDS ORDERED: LEVO500T89 MT (15:11)
[2021-01-23] MEDS ORDERED: INSU100I28 SQ (15:11)
[2021-01-23] MEDS ORDERED: REV20 MT (15:11)
[2021-01-23] MEDS ORDERED: ALBU90AE INH (15:11)
[2021-01-23] MEDS ORDERED: FERR-71 MT (15:11)
[2021-01-23] MEDS ORDERED: CLAR10 MT (15:11)
[2021-01-23] MEDS ORDERED: METO-293 MT (15:11)
[2021-01-23] MEDS ORDERED: FAMO-135 PO (15:11)
[2021-01-23] MEDS ORDERED: MECLIZINE 25MG TABLET PO SCH (15:15)
[2021-01-23] MEDS ORDERED: MECLIZINE 25MG TABLET PO PRN (15:15)
[2021-01-23] MEDS ORDERED: MECL-115 PO (15:16)
[2021-01-23 16:00] VITALS: BP 140/53
[2021-01-23] MEDS: LORATADINE 10MG TABLET PO SCH (16:06)
[2021-01-23 19:00] LABS: PLATELET ESTIMATE NORMAL
[2021-01-23 20:00] VITALS: BP 167/73
[2021-01-23] MEDS: FAMOTIDINE 20MG TABLET PO SCH (22:20)
[2021-01-24] VITALS: BP 137/53
[2021-01-24] MEDS: METOCLOPRAMIDE HCL 10MG/2ML VIAL IV SCH ×2 (00:41→06:48)
[2021-01-24] MEDS: IPRATROPIUM/ALBUTEROL 0.5-3(2.5)MG/3ML NEB HHN SCH ×2 (02:28→07:51)
[2021-01-24 04:00] VITALS: BP 127/57
[2021-01-24] MEDS: BLOOD SUGAR DIAGNOSTIC STRIP TEST SCH (06:48)
[2021-01-24] MEDS: NITROGLYCERIN OINT 1GM/INCH UDPKT TD SCH (06:48)
[2021-01-24] MEDS: SILDENAFIL CITRATE 20MG TABLET PO SCH (06:48)
[2021-01-24] MEDS: FERROUS SULFATE 325MG TABLET PO SCH (06:48)
[2021-01-24 08:00] VITALS: BP 142/61
[2021-01-24] MEDS: FUROSEMIDE 40MG/4ML VIAL IVP SCH ×2 (08:08→08:10)
[2021-01-24] MEDS: INSULIN LISPRO 100 UNITS/ML SUBCUT SCH (08:08)
[2021-01-24] MEDS: ASPIRIN 81MG EC TABLET PO SCH (08:08)
[2021-01-24] MEDS: LORATADINE 10MG TABLET PO SCH (08:09)
[2021-01-24] MEDS: AZITHROMYCIN 500 MG TABLET PO SCH (08:09)
[2021-01-24] MEDS: AMLODIPINE 5MG TABLET PO SCH (08:09)
[2021-01-24] MEDS: LOSARTAN POTASSIUM 25 MG TABLET PO SCH (08:09)
[2021-01-24 08:13] VITALS: BP 142/61
== END 2021-01-24 09:40 | disposition home or self-care (01) | DRG 74 ==
LOC: ER 10:05 → 5WST 13:58 → ENRESERV 15:28 → 7WST 01-22 14:22 → 5WST 01-22 23:40
PROVIDERS: ADMIT Internal Medicine; ATTEND Internal Medicine
DX: E11.43 Type 2 diabetes mellitus with diabetic autonomic (poly)neuropathy (principal); J45.901 Unspecified asthma with (acute) exacerbation; E66.2 Morbid (severe) obesity with alveolar hypoventilation; I31.3 Pericardial effusion (noninflammatory); N39.0 Urinary tract infection, site not specified; K31.84 Gastroparesis; R06.03 Acute respiratory distress; E11.65 Type 2 diabetes mellitus with hyperglycemia; D72.819 Decreased white blood cell count, unspecified; E78.5 Hyperlipidemia, unspecified; D50.9 Iron deficiency anemia, unspecified; E87.70 Fluid overload, unspecified; K74.60 Unspecified cirrhosis of liver; R09.02 Hypoxemia; Z20.822 Contact with and (suspected) exposure to COVID-19; K76.9 Liver disease, unspecified; I10 Essential (primary) hypertension; I27.20 Pulmonary hypertension, unspecified; K76.0 Fatty (change of) liver, not elsewhere classified; Z79.4 Long term (current) use of insulin; Z87.891 Personal history of nicotine dependence; Z90.49 Acquired absence of other specified parts of digestive tract; Z99.81 Dependence on supplemental oxygen; Z79.899 Other long term (current) drug therapy; Z91.19 Patient's noncompliance with other medical treatment and regimen; Z68.36 Body mass index [BMI] 36.0-36.9, adult; R51.9 Headache, unspecified
CPT/HCPCS: 36415; 36600; 71045; 71275; 76705; 80048; 80053; 80061; 81003; 82375; 82533; 82550; 82553; 82607; 82805; 82962; 83036; 83540; 83550; 83880; 84439; 84443; 84484; 85025; 87426; 93005; 93306; 93970; 94640; 97162; 99285; A6261; J0696; J1200; J1815; J1940; J2270; J2405; J2765; J2920; J7040; J7060; J8540; J8597; Q9967; U0003

== ENCOUNTER 2021-02-07 09:37 | Inpatient (IN) | payer MEDICARE, MEDICAID ==
[~2021-02-07] VITALS: Ht 157.5 cm; Wt 94.8 kg
[~2021-02-07 09:37] MED LIST changes: +ALBU90AE INH; +AMLO10TA4 MT; -AMLO2.5T45 PO; +CLAR10 MT; +FAMO-135 PO; +FERR-71 MT; +INSU100I28 SQ; +LEVO500T89 MT; +MECL-115 PO; +REV20 MT
[2021-02-07] MEDS ORDERED: IPRATROPIUM BROMIDE (0.02%) 0.5MG/2.5ML NEB HHN STA (10:16)
[2021-02-07] MEDS ORDERED: ALBUTEROL (0.083%) 2.5MG/3ML NEB HHN STA (10:16)
[2021-02-07] MEDS ORDERED: MAGNESIUM 2 G PREMIX 50 ML IV STA (10:16)
[2021-02-07] MEDS ORDERED: METHYLPREDNISOLONE SOD SUCC 125 MG/2 ML VIAL IV STA (10:16)
[2021-02-07 10:19] LABS: BASOPHILS % 0.3 % (0.0-2.0); EOSINOPHILS % 6.3 % (0.0-5.0); HEMATOCRIT. 31.8 % (36.0-48.0); HEMOGLOBIN. 9.5 g/dL (12.0-16.0); MEAN CORPUSCULAR HEMOGLOBIN 21.1 pg (28.0-32.0); MEAN CORPUSCULAR VOLUME 70.6 fL (81.0-99.0); MEAN PLATELET VOLUME 7.7 fl (7.4-10.4); MONOCYTES % 5.8 % (2.0-8.0); NEUTROPHILS % 78.6 % (40.0-76.0); PLATELET 312 x1000/uL (130-400)
[2021-02-07 10:23] LABS: CHLORIDE 104 mEq/L (98-107)
[2021-02-07 10:25] LABS: INR 1.2; PROTHROMBIN TIME 12.4 sec (9.6-11.0)
[2021-02-07] MEDS ORDERED: FUROSEMIDE 20MG/2ML VIAL IVP ONE (11:00)
[2021-02-07] MEDS ORDERED: LEVOFLOXACIN 500MG PREMIX 100 ML IV ONE (11:00)
[2021-02-07 15:36] LABS: CLARITY URINE CLEAR (CLEAR); COLOR URINE YELLOW (YELLOW); KETONES URINE NEGATIVE (NEGATIVE); LEUKOCYTE ESTERASE URINE TRACE (NEGATIVE); NITRITE URINE NEGATIVE (NEGATIVE); OCCULT BLOOD URINE NEGATIVE (NEGATIVE); PROTEIN URINE TRACE (NEGATIVE); SPECIFIC GRAVITY URINE 1.014 (1.005-1.030); UROBILINOGEN URINE 0.2 E.U./dL (0.2-1.0)
[2021-02-07] MEDS ORDERED: IPRATROPIUM/ALBUTEROL 0.5-3(2.5)MG/3ML NEB HHN PRN (16:15)
[2021-02-07] MEDS ORDERED: ONDANSETRON HCL 4MG/2ML INJ IV PRN (16:15)
[2021-02-07] MEDS: ENOXAPARIN 30MG/0.3ML SYR SUBCUT SCH (17:28)
[2021-02-07] MEDS: HYDROCODONE/ACETAMINOPHEN 5/325MG TABLET PO PRN ×2 (17:28→23:02)
[2021-02-07] MEDS ORDERED: INSULIN LISPRO 100 UNITS/ML SUBCUT NR (23:15)
[2021-02-08 00:45] LABS: CREATINE KINASE 47 IU/L (26-192)
[2021-02-08 00:46] LABS: CREATINE KINASE MB FRACTION 1.3 ng/mL (0.5-3.6)
[2021-02-08 01:00] VITALS: BP 155/73
[2021-02-08] MEDS: HYDROCODONE/ACETAMINOPHEN 5/325MG TABLET PO PRN ×3 (03:17→18:10)
[2021-02-08] MEDS ORDERED: DEXTROSE 50% WATER 50ML SYRINGE IV PRN (03:30)
[2021-02-08 04:00] VITALS: BP 148/80
[2021-02-08] MEDS: ENOXAPARIN 30MG/0.3ML SYR SUBCUT SCH ×2 (05:39→17:56)
[2021-02-08 06:54] LABS: HEMATOCRIT. 28.5 % (36.0-48.0); HEMOGLOBIN. 8.7 g/dL (12.0-16.0); MEAN CORPUSCULAR HEMOGLOBIN 21.5 pg (28.0-32.0); MEAN CORPUSCULAR VOLUME 70.5 fL (81.0-99.0); PLATELET 293 x1000/uL (130-400); RED BLOOD CELL COUNT 4.04 mill/uL (4.2-5.4)
[2021-02-08 07:10] LABS: CHLORIDE 102 mEq/L (98-107)
[2021-02-08 07:22] LABS: CREATINE KINASE 56 IU/L (26-192); CREATINE KINASE MB FRACTION 1.8 ng/mL (0.5-3.6); LDL CHOLESTEROL 63 mg/dL (5-100)
[2021-02-08 07:23] LABS: HDL CHOLESTEROL 105 mg/dL (40-59)
[2021-02-08] MEDS: BLOOD SUGAR DIAGNOSTIC STRIP TEST SCH ×4 (07:54→21:00)
[2021-02-08 08:00] VITALS: BP 144/63
[2021-02-08] MEDS: ASPIRIN 81MG EC TABLET PO SCH (09:15)
[2021-02-08] MEDS: INSULIN LISPRO 100 UNITS/ML SUBCUT SCH ×4 (09:16→21:18)
[2021-02-08] MEDS: FUROSEMIDE 40MG/4ML VIAL IVP SCH (09:56)
[2021-02-08] MEDS ORDERED: LEVOFLOXACIN 500MG PREMIX 100 ML IV SCH (11:00)
[2021-02-08] MEDS: LEVOFLOXACIN 500MG PREMIX 100 ML IV SCH (11:27)
[2021-02-08 11:38] LABS: BG BASE EXCESS 5.6 mmol/L (-2.0-2.0); BG CARBOXYHEMOGLOBIN 0.4 % (0.5-1.5); BG DEOXYHEMOGLOBIN 1.4 % (0.0-5.0); BG FRACTION INSPIRED OXYGEN 32; BG METHEMOGLOBIN 0.3 % (0.0-1.5); BG OXYGEN SATURATION 98.6 % (92.0-98.5); BG OXYHEMOGLOBIN 97.9 % (94.0-97.0); BG PCO2 49.5 mmHg (35.0-45.0); BG PH 7.414 (7.350-7.450); BG PO2 125.2 mmHg (75.0-100.0); BG SAMPLE SITE RIGHT BRACHIAL; BG TOTAL HEMOGLOBIN 9.4 g/dL (12.0-18.0); BG VENT MODE NASAL CANNULA
[2021-02-08 12:00] VITALS: BP 117/44
[2021-02-08 12:53] LABS: PLATELET ESTIMATE NORMAL
[2021-02-08 16:00] VITALS: BP 129/58
[2021-02-08] MEDS ORDERED: MECLIZINE 25MG TABLET PO PRN (16:00)
[2021-02-08] MEDS ORDERED: MECLIZINE 25MG TABLET PO NR (16:00)
[2021-02-08] MEDS ORDERED: ACETAMINOPHEN 650MG SUPP PR PRN (16:00)
[2021-02-08] MEDS ORDERED: ACETAMINOPHEN 325MG TABLET PO PRN (16:00)
[2021-02-08] MEDS ORDERED: INSULIN GLARGINE UD 100 UNITS/ML SYR SUBCUT NR (16:30)
[2021-02-08] MEDS: METOCLOPRAMIDE HCL 10MG/2ML VIAL IV SCH (18:09)
[2021-02-08 20:00] VITALS: BP 136/47
[2021-02-08] MEDS: FAMOTIDINE 20MG TABLET PO SCH (21:16)
[2021-02-08] MEDS: METHYLPREDNISOLONE SOD SUCC 40 MG/ML VIAL IV SCH (21:16)
[2021-02-08] MEDS: SILDENAFIL CITRATE 20MG TABLET PO SCH (21:17)
[2021-02-08] MEDS: INSULIN GLARGINE UD 100 UNITS/ML SYR SUBCUT SCH (21:19)
[2021-02-08] MEDS: IPRATROPIUM/ALBUTEROL 0.5-3(2.5)MG/3ML NEB HHN SCH (21:20)
[2021-02-09] VITALS: BP 114/63
[2021-02-09] MEDS: METOCLOPRAMIDE HCL 10MG/2ML VIAL IV SCH ×4 (00:14→17:13)
[2021-02-09] MEDS: HYDROCODONE/ACETAMINOPHEN 5/325MG TABLET PO PRN ×3 (00:15→22:20)
[2021-02-09] MEDS: IPRATROPIUM/ALBUTEROL 0.5-3(2.5)MG/3ML NEB HHN SCH ×4 (02:13→21:06)
[2021-02-09 04:00] VITALS: BP 139/57
[2021-02-09] MEDS ORDERED: PNEUMOCOCCAL 23-VAL P-SAC VAC 0.5 ML IM ONE (05:00)
[2021-02-09] MEDS: SILDENAFIL CITRATE 20MG TABLET PO SCH ×3 (06:10→22:20)
[2021-02-09] MEDS: ENOXAPARIN 30MG/0.3ML SYR SUBCUT SCH ×2 (06:12→17:12)
[2021-02-09] MEDS: BLOOD SUGAR DIAGNOSTIC STRIP TEST SCH ×4 (06:56→21:00)
[2021-02-09 08:00] VITALS: BP 123/56
[2021-02-09] MEDS: INSULIN LISPRO 100 UNITS/ML SUBCUT SCH ×4 (09:00→21:00)
[2021-02-09] MEDS: METHYLPREDNISOLONE SOD SUCC 40 MG/ML VIAL IV SCH ×2 (09:00→22:20)
[2021-02-09] MEDS: ASPIRIN 81MG EC TABLET PO SCH (09:00)
[2021-02-09] MEDS: FUROSEMIDE 40MG/4ML VIAL IVP SCH (09:00)
[2021-02-09] MEDS: INSULIN GLARGINE UD 100 UNITS/ML SYR SUBCUT SCH ×2 (09:01→22:24)
[2021-02-09 12:00] VITALS: BP 142/57
[2021-02-09] MEDS: LEVOFLOXACIN 500MG PREMIX 100 ML IV SCH (12:04)
[2021-02-09] MEDS ORDERED: LORAZEPAM 0.5MG TABLET PO PRN (12:45)
[2021-02-09] MEDS ORDERED: INSULIN GLARGINE UD 100 UNITS/ML SYR SUBCUT NR (14:30)
[2021-02-09] MEDS: METRONIDAZOLE 500MG TABLET PO SCH ×2 (14:54→22:20)
[2021-02-09] MEDS: FOLIC ACID 1 MG, THIAMINE HCL 100 MG, MVI, ADULT NO.1 10 ML in DEXTROSE 5% WATER 1,000 ML IV SCH (14:55)
[2021-02-09 16:00] VITALS: BP 129/53
[2021-02-09 16:38] LABS: TOTAL IRON BINDING CAPACITY 380 ug/dL (250-450)
[2021-02-09 16:49] LABS: FOLIC ACID (FOLATE) SERUM 15.5 ng/mL (>5.38)
[2021-02-09] MEDS ORDERED: INSULIN LISPRO 100 UNITS/ML SUBCUT NR ×2 (16:55→18:17)
[2021-02-09] MEDS ORDERED: LACTULOSE 20G/30ML UDC PO NR (17:00)
[2021-02-09 19:11] LABS: HEMATOCRIT. 29.9 % (36.0-48.0); MEAN CORPUSCULAR HEMOGLOBIN 21.4 pg (28.0-32.0); MEAN PLATELET VOLUME 9.1 fl (7.4-10.4); PLATELET 279 x1000/uL (130-400); RED BLOOD CELL COUNT 4.22 mill/uL (4.2-5.4); RED CELL DISTRIBUTION WIDTH 20.2 % (11.6-14.6)
[2021-02-09 19:15] LABS: CHLORIDE 93 mEq/L (98-107)
[2021-02-09 20:00] VITALS: BP 134/46
[2021-02-09 20:36] LABS: PLATELET ESTIMATE NORMAL
[2021-02-09] MEDS ORDERED: INSULIN GLARGINE UD 100 UNITS/ML SYR SUBCUT SCH (22:00)
[2021-02-09] MEDS: FAMOTIDINE 20MG TABLET PO SCH (22:20)
[2021-02-10] VITALS: BP 129/52
[2021-02-10] MEDS: METOCLOPRAMIDE HCL 10MG/2ML VIAL IV SCH ×4 (00:58→18:00)
[2021-02-10] MEDS: IPRATROPIUM/ALBUTEROL 0.5-3(2.5)MG/3ML NEB HHN SCH ×4 (02:53→20:44)
[2021-02-10 04:00] VITALS: BP 140/65
[2021-02-10] MEDS: METRONIDAZOLE 500MG TABLET PO SCH ×3 (06:06→21:28)
[2021-02-10] MEDS: SILDENAFIL CITRATE 20MG TABLET PO SCH ×3 (06:07→21:28)
[2021-02-10] MEDS: ENOXAPARIN 30MG/0.3ML SYR SUBCUT SCH ×2 (06:07→18:00)
[2021-02-10] MEDS: BLOOD SUGAR DIAGNOSTIC STRIP TEST SCH ×4 (06:22→21:00)
[2021-02-10] MEDS: HYDROCODONE/ACETAMINOPHEN 5/325MG TABLET PO PRN ×3 (06:23→21:24)
[2021-02-10 06:35] LABS: CHLORIDE 95 mEq/L (98-107)
[2021-02-10 06:37] LABS: HEMATOCRIT. 28.2 % (36.0-48.0); HEMOGLOBIN. 8.6 g/dL (12.0-16.0); MEAN CORPUSCULAR HEMOGLOBIN 21.6 pg (28.0-32.0); MEAN CORPUSCULAR VOLUME 70.9 fL (81.0-99.0); MEAN PLATELET VOLUME 8.7 fl (7.4-10.4); PLATELET 258 x1000/uL (130-400); RED BLOOD CELL COUNT 3.98 mill/uL (4.2-5.4); RED CELL DISTRIBUTION WIDTH 20.4 % (11.6-14.6)
[2021-02-10 08:00] VITALS: BP 115/48
[2021-02-10] MEDS: ASPIRIN 81MG EC TABLET PO SCH (08:45)
[2021-02-10] MEDS: FUROSEMIDE 40MG/4ML VIAL IVP SCH (08:45)
[2021-02-10] MEDS: METHYLPREDNISOLONE SOD SUCC 40 MG/ML VIAL IV SCH ×2 (08:46→21:28)
[2021-02-10] MEDS: INSULIN LISPRO 100 UNITS/ML SUBCUT SCH ×4 (08:57→21:31)
[2021-02-10] MEDS: LEVOFLOXACIN 500MG TABLET PO SCH (10:37)
[2021-02-10] MEDS: INSULIN GLARGINE UD 100 UNITS/ML SYR SUBCUT SCH ×2 (10:39→21:31)
[2021-02-10 12:00] VITALS: BP 141/56
[2021-02-10 13:54] LABS: PLATELET ESTIMATE NORMAL
[2021-02-10 16:00] VITALS: BP 102/69
[2021-02-10] MEDS ORDERED: INSULIN GLARGINE UD 100 UNITS/ML SYR SUBCUT NR (17:00)
[2021-02-10] MEDS ORDERED: IRON SUCROSE COMPLEX 100 MG/5 ML ML IV SCH (18:30)
[2021-02-10 20:00] VITALS: BP 159/67
[2021-02-10] MEDS: FOLIC ACID 1 MG, THIAMINE HCL 100 MG, MVI, ADULT NO.1 10 ML in DEXTROSE 5% WATER 1,000 ML IV SCH (20:40)
[2021-02-10] MEDS: IRON SUCROSE COMPLEX 100 MG/5 ML ML IV SCH (20:41)
[2021-02-10] MEDS: FAMOTIDINE 20MG TABLET PO SCH (21:29)
[2021-02-11] VITALS (7 sets, daily range): BP systolic 117–165; BP diastolic 52–83
[2021-02-11] MEDS: METOCLOPRAMIDE HCL 10MG/2ML VIAL IV SCH ×4 (00:24→18:31)
[2021-02-11] MEDS: LORAZEPAM 2MG/ML CPJ IV PRN (00:24)
[2021-02-11] MEDS: METRONIDAZOLE 500MG TABLET PO SCH ×3 (05:49→22:26)
[2021-02-11] MEDS: ENOXAPARIN 30MG/0.3ML SYR SUBCUT SCH (05:49)
[2021-02-11] MEDS: SILDENAFIL CITRATE 20MG TABLET PO SCH ×3 (05:49→22:32)
[2021-02-11] MEDS: FOLIC ACID 1 MG, THIAMINE HCL 100 MG, MVI, ADULT NO.1 10 ML in DEXTROSE 5% WATER 1,000 ML IV SCH ×2 (05:50→14:32)
[2021-02-11 06:08] LABS: INR 1.2; PROTHROMBIN TIME 12.3 sec (9.6-11.0)
[2021-02-11] MEDS: INSULIN LISPRO 100 UNITS/ML SUBCUT SCH ×4 (06:16→22:45)
[2021-02-11 06:28] LABS: HEMATOCRIT. 30.3 % (36.0-48.0); HEMOGLOBIN. 9.1 g/dL (12.0-16.0); MEAN CORPUSCULAR HEMOGLOBIN 21.1 pg (28.0-32.0); MEAN CORPUSCULAR VOLUME 70.5 fL (81.0-99.0); MEAN PLATELET VOLUME 8.7 fl (7.4-10.4); PLATELET 266 x1000/uL (130-400); RED CELL DISTRIBUTION WIDTH 20.4 % (11.6-14.6)
[2021-02-11] MEDS: BLOOD SUGAR DIAGNOSTIC STRIP TEST SCH ×4 (06:54→21:00)
[2021-02-11 08:09] LABS: CHLORIDE 94 mEq/L (98-107)
[2021-02-11] MEDS: FUROSEMIDE 40MG/4ML VIAL IVP SCH (08:42)
[2021-02-11] MEDS: METHYLPREDNISOLONE SOD SUCC 40 MG/ML VIAL IV SCH (08:42)
[2021-02-11] MEDS: ASPIRIN 81MG EC TABLET PO SCH (08:42)
[2021-02-11] MEDS: IPRATROPIUM/ALBUTEROL 0.5-3(2.5)MG/3ML NEB HHN SCH ×4 (08:50→20:00)
[2021-02-11 09:08] LABS: PLATELET ESTIMATE NORMAL
[2021-02-11] MEDS: INSULIN GLARGINE UD 100 UNITS/ML SYR SUBCUT SCH (10:00)
[2021-02-11] MEDS: LEVOFLOXACIN 500MG TABLET PO SCH (11:05)
[2021-02-11] MEDS: HYDROCODONE/ACETAMINOPHEN 5/325MG TABLET PO PRN ×2 (11:43→22:47)
[2021-02-11] MEDS ORDERED: ONDANSETRON HCL 4MG/2ML INJ IV PRN (16:30)
[2021-02-11] MEDS ORDERED: MEPERIDINE HCL/PF 25MG/ML CPJ IV PRN (16:30)
[2021-02-11] MEDS ORDERED: HYDROMORPHONE HCL/PF 2MG/ML CPJ IV PRN (16:30)
[2021-02-11] MEDS ORDERED: LABETALOL 5MG/ML SYR 20 MG/4 ML SYRINGE IV PRN (16:30)
[2021-02-11] MEDS ORDERED: PROPOFOL 200MG/20ML VIAL IV ONE ×2 (16:49→17:01)
[2021-02-11] MEDS ORDERED: LIDOCAINE HCL/PF 1% 10 MG/ML 5ML VIAL ONE (16:49)
[2021-02-11] MEDS ORDERED: INSULIN GLARGINE UD 100 UNITS/ML SYR SUBCUT SCH (22:00)
[2021-02-11] MEDS: IRON SUCROSE COMPLEX 100 MG/5 ML ML IV SCH (22:26)
[2021-02-11] MEDS: FAMOTIDINE 20MG TABLET PO SCH (22:26)
[2021-02-12] VITALS: BP 140/43
[2021-02-12] MEDS: METOCLOPRAMIDE HCL 10MG/2ML VIAL IV SCH ×3 (01:01→11:04)
[2021-02-12] MEDS: LORAZEPAM 2MG/ML CPJ IV PRN (01:01)
[2021-02-12] MEDS: IPRATROPIUM/ALBUTEROL 0.5-3(2.5)MG/3ML NEB HHN SCH ×3 (01:20→14:00)
[2021-02-12 04:00] VITALS: BP 125/48
[2021-02-12 06:06] LABS: CHLORIDE 95 mEq/L (98-107)
[2021-02-12 06:21] LABS: BASOPHILS % 0.1 % (0.0-2.0); HEMATOCRIT. 30.6 % (36.0-48.0); HEMOGLOBIN. 9.3 g/dL (12.0-16.0); LYMPHOCYTES % 14.2 % (20.0-50.0); MEAN CORPUSCULAR HEMOGLOBIN 21.7 pg (28.0-32.0); MEAN CORPUSCULAR VOLUME 71.2 fL (81.0-99.0); MEAN PLATELET VOLUME 8.8 fl (7.4-10.4); MONOCYTES % 12.6 % (2.0-8.0); NEUTROPHILS % 73.1 % (40.0-76.0); PLATELET 273 x1000/uL (130-400); RED CELL DISTRIBUTION WIDTH 20.6 % (11.6-14.6)
[2021-02-12] MEDS: SILDENAFIL CITRATE 20MG TABLET PO SCH ×2 (06:29→13:25)
[2021-02-12] MEDS: METRONIDAZOLE 500MG TABLET PO SCH ×2 (06:29→13:25)
[2021-02-12] MEDS: BLOOD SUGAR DIAGNOSTIC STRIP TEST SCH ×2 (06:29→12:20)
[2021-02-12] MEDS: INSULIN LISPRO 100 UNITS/ML SUBCUT SCH ×2 (07:50→12:50)
[2021-02-12 08:00] VITALS: BP 142/63
[2021-02-12] MEDS ORDERED: METHYLPREDNISOLONE SOD SUCC 40 MG/ML VIAL IV SCH (09:00)
[2021-02-12] MEDS ORDERED: POTASSIUM CHLORIDE 20MEQ TABLET SR PO NR (10:45)
[2021-02-12] MEDS: ASPIRIN 81MG EC TABLET PO SCH (11:03)
[2021-02-12] MEDS: FUROSEMIDE 40MG/4ML VIAL IVP SCH (11:03)
[2021-02-12 12:00] VITALS: BP 142/50
[2021-02-12] MEDS ORDERED: METR500T MT (13:06)
[2021-02-12] MEDS ORDERED: LEVO500T89 MT (13:06)
[2021-02-12] MEDS ORDERED: FAMO-135 PO (13:06)
[2021-02-12] MEDS ORDERED: HYDR-4001 MT (13:06)
[2021-02-12] MEDS ORDERED: IPRA3AMP9 NEB (13:06)
[2021-02-12] MEDS ORDERED: REV20 MT (13:06)
[2021-02-12] MEDS: FOLIC ACID 1 MG, THIAMINE HCL 100 MG, MVI, ADULT NO.1 10 ML in DEXTROSE 5% WATER 1,000 ML IV SCH (13:25)
[2021-02-12] MEDS: HYDROCODONE/ACETAMINOPHEN 5/325MG TABLET PO PRN (13:55)
[2021-02-12 15:03] VITALS: BP 142/50
[2021-02-12 19:10] LABS: OVA & PARASITE EXAM Final report (.)
== END 2021-02-12 16:41 | disposition home or self-care (01) | DRG 73 ==
LOC: ER 09:37 → EDBEDREQ 10:21 → 6WST 11:52 → EDBEDREQ 11:56 → ENRESERV 21:11
PROVIDERS: ADMIT Internal Medicine; ATTEND Internal Medicine
PROC: 0DB78ZX Excision of Stomach, Pylorus, Via Natural or Artificial Opening Endoscopic, Diagnostic (ICD-10-PCS; principal; 2021-02-11)
DX: E11.43 Type 2 diabetes mellitus with diabetic autonomic (poly)neuropathy (principal); I50.33 Acute on chronic diastolic (congestive) heart failure; J45.901 Unspecified asthma with (acute) exacerbation; I31.3 Pericardial effusion (noninflammatory); N39.0 Urinary tract infection, site not specified; E66.2 Morbid (severe) obesity with alveolar hypoventilation; E87.1 Hypo-osmolality and hyponatremia; K52.9 Noninfective gastroenteritis and colitis, unspecified; I11.0 Hypertensive heart disease with heart failure; G90.8 Other disorders of autonomic nervous system; E11.65 Type 2 diabetes mellitus with hyperglycemia; K31.84 Gastroparesis; I27.20 Pulmonary hypertension, unspecified; D50.9 Iron deficiency anemia, unspecified; D25.9 Leiomyoma of uterus, unspecified; E78.5 Hyperlipidemia, unspecified; E86.0 Dehydration; F10.20 Alcohol dependence, uncomplicated; G89.29 Other chronic pain; K29.70 Gastritis, unspecified, without bleeding; J44.9 Chronic obstructive pulmonary disease, unspecified; Z68.38 Body mass index [BMI] 38.0-38.9, adult; K76.0 Fatty (change of) liver, not elsewhere classified; F32.9 Major depressive disorder, single episode, unspecified; Z20.822 Contact with and (suspected) exposure to COVID-19; Z79.4 Long term (current) use of insulin; Z79.899 Other long term (current) drug therapy; Z91.19 Patient's noncompliance with other medical treatment and regimen; Z99.81 Dependence on supplemental oxygen; Z90.49 Acquired absence of other specified parts of digestive tract
CPT/HCPCS: 36415; 36600; 70551; 71045; 74176; 76700; 80048; 80053; 80061; 81003; 82270; 82375; 82550; 82553; 82607; 82705; 82728; 82746; 82805; 82962; 83036; 83540; 83550; 83605; 83880; 84145; 84439; 84443; 84484; 85025; 85044; 87015; 87045; 87177; 87209; 87426; 87427; 87449; 87493; 88305; 88312; 88313; 89055; 93005; 93306; 93880; 94640; 94644; 97162; 97530; 99291; J1650; J1815; J1940; J1956; J2060; J2704; J2765; J2920; J2930; J3411; J3475; J3490; J7040; J7070; J8597

== ENCOUNTER 2021-06-03 14:49 | Inpatient (IN) | payer MEDICARE, MEDICAID ==
[~2021-06-03] VITALS: Ht 157.5 cm; Wt 90.3 kg
[~2021-06-03 14:49] MED LIST changes: -ALBU90AE INH; +IPRA3AMP9 NEB; +METR500T MT
[2021-06-03] MEDS ORDERED: FAMOTIDINE 20MG/2ML VIAL IV STA (21:32)
[2021-06-03] MEDS ORDERED: ONDANSETRON HCL 4MG/2ML INJ IV STA (21:32)
[2021-06-03] MEDS ORDERED: SODIUM CHLORIDE 0.9% 500 ML IV ONE (21:45)
[2021-06-03 22:02] LABS: BASOPHILS % 0.6 % (0.0-2.0); EOSINOPHILS % 6.8 % (0.0-5.0); HEMATOCRIT. 36.1 % (36.0-48.0); HEMOGLOBIN. 12.3 g/dL (12.0-16.0); LYMPHOCYTES % 16.7 % (20.0-50.0); MEAN CORPUSCULAR HEMOGLOBIN 30.2 pg (28.0-32.0); MEAN CORPUSCULAR VOLUME 88.5 fL (81.0-99.0); MEAN PLATELET VOLUME 7.8 fl (7.4-10.4); MONOCYTES % 8.4 % (2.0-8.0); NEUTROPHILS % 67.5 % (40.0-76.0); PLATELET 228 x1000/uL (130-400); RED BLOOD CELL COUNT 4.07 mill/uL (4.2-5.4)
[2021-06-03 22:05] LABS: CHLORIDE 107 mEq/L (98-107)
[2021-06-03 22:08] LABS: INR 1.1
[2021-06-03] MEDS ORDERED: MORPHINE SULFATE 4 MG/ML CPJ (NOT FOR IM USE) IV ONE (22:15)
[2021-06-03] MEDS ORDERED: MECLIZINE 25MG TABLET PO ONE (23:45)
[2021-06-04] VITALS (7 sets, daily range): BP systolic 143–156; BP diastolic 52–76
[2021-06-04 00:01] LABS: CLARITY URINE CLEAR (CLEAR); COLOR URINE YELLOW (YELLOW); KETONES URINE TRACE (NEGATIVE); LEUKOCYTE ESTERASE URINE 1+ (NEGATIVE); NITRITE URINE NEGATIVE (NEGATIVE); OCCULT BLOOD URINE NEGATIVE (NEGATIVE); PROTEIN URINE TRACE (NEGATIVE); SPECIFIC GRAVITY URINE 1.027 (1.005-1.030)
[2021-06-04] MEDS ORDERED: NALOXONE HCL 0.4MG/ML VIAL IV PRN (02:00)
[2021-06-04] MEDS ORDERED: DEXTROSE 50% WATER 50ML SYRINGE IV PRN (02:00)
[2021-06-04] MEDS ORDERED: ONDANSETRON HCL 4MG/2ML INJ IV PRN (02:00)
[2021-06-04] MEDS: ACETAMINOPHEN 325MG TABLET PO PRN ×2 (02:12→09:27)
[2021-06-04] MEDS: DEXT 5%/0.45% NACL 1000ML 1,000 ML IV SCH ×2 (02:22→14:34)
[2021-06-04] MEDS: MORPHINE SULFATE 2 MG/ML CPJ (NOT FOR IM USE) IV PRN ×3 (04:03→17:55)
[2021-06-04] MEDS: BLOOD SUGAR DIAGNOSTIC STRIP TEST SCH ×4 (05:35→23:24)
[2021-06-04] MEDS: INSULIN LISPRO (LOW DOSE) 100 UNITS/ML SUBCUT SCH ×4 (06:05→23:25)
[2021-06-04] MEDS: PANTOPRAZOLE SODIUM 40 MG/VIAL IV SCH (09:26)
[2021-06-04] MEDS ORDERED: CEFTRIAXONE 1 G PREMIX 50 ML IV SCH (10:30)
[2021-06-04] MEDS ORDERED: LACTULOSE 20G/30ML UDC PO NR (10:30)
[2021-06-04] MEDS ORDERED: NA PHOS,M-B/NA PHOS,DI-BA ENEMA 118ML PR NR (10:30)
[2021-06-04] MEDS ORDERED: IPRATROPIUM/ALBUTEROL 0.5-3(2.5)MG/3ML NEB HHN PRN (12:30)
[2021-06-04] MEDS ORDERED: BISACODYL 10MG SUPP PR PRN (12:30)
[2021-06-04] MEDS ORDERED: LACTULOSE 20G/30ML UDC PO PRN (12:30)
[2021-06-04 13:12] LABS: BASOPHILS % 0.7 % (0.0-2.0); EOSINOPHILS % 8.9 % (0.0-5.0); HEMATOCRIT. 35.3 % (36.0-48.0); HEMOGLOBIN. 11.5 g/dL (12.0-16.0); LYMPHOCYTES % 11.3 % (20.0-50.0); MEAN CORPUSCULAR HEMOGLOBIN 29.9 pg (28.0-32.0); MEAN CORPUSCULAR VOLUME 91.6 fL (81.0-99.0); MEAN PLATELET VOLUME 8.1 fl (7.4-10.4); MONOCYTES % 8.1 % (2.0-8.0); PLATELET 199 x1000/uL (130-400); RED BLOOD CELL COUNT 3.86 mill/uL (4.2-5.4); RED CELL DISTRIBUTION WIDTH 16.9 % (11.6-14.6)
[2021-06-04] MEDS: CEFTRIAXONE 1,000 MG in DEXTROSE 5% WATER 50 ML IV SCH (13:14)
[2021-06-04 13:16] LABS: CHLORIDE 110 mEq/L (98-107)
[2021-06-04 13:25] LABS: CREATINE KINASE MB FRACTION 1.2 ng/mL (0.5-3.6); LDL CHOLESTEROL 103 mg/dL (5-100)
[2021-06-04 13:26] LABS: CREATINE KINASE 40 IU/L (26-192); HDL CHOLESTEROL 96 mg/dL (40-59)
[2021-06-04 13:27] LABS: T4 FREE 0.93 ng/dL (0.76-1.46)
[2021-06-04 13:40] LABS: HEPATITIS B SURFACE ANTIGEN NEGATIVE
[2021-06-04 14:10] LABS: HEPATITIS A AB IGM NEGATIVE (NEGATIVE)
[2021-06-04] MEDS: MECLIZINE 25MG TABLET PO SCH ×2 (14:34→21:23)
[2021-06-04] MEDS ORDERED: INSULIN (17:31)
[2021-06-04] MEDS: METOCLOPRAMIDE HCL 10MG/2ML VIAL IV SCH ×2 (18:33→23:19)
[2021-06-05] VITALS: BP 142/59
[2021-06-05 04:00] VITALS: BP 144/55
[2021-06-05] MEDS: DEXT 5%/0.45% NACL 1000ML 1,000 ML IV SCH ×2 (04:00→14:49)
[2021-06-05] MEDS: MECLIZINE 25MG TABLET PO SCH ×3 (05:29→20:30)
[2021-06-05] MEDS: METOCLOPRAMIDE HCL 10MG/2ML VIAL IV SCH ×3 (05:30→18:13)
[2021-06-05] MEDS: MORPHINE SULFATE 2 MG/ML CPJ (NOT FOR IM USE) IV PRN ×3 (05:42→17:37)
[2021-06-05] MEDS: BLOOD SUGAR DIAGNOSTIC STRIP TEST SCH ×4 (06:00→23:54)
[2021-06-05 06:19] LABS: CHLORIDE 109 mEq/L (98-107)
[2021-06-05 06:28] LABS: BASOPHILS % 0.8 % (0.0-2.0); EOSINOPHILS % 11.1 % (0.0-5.0); HEMATOCRIT. 33.8 % (36.0-48.0); HEMOGLOBIN. 11.2 g/dL (12.0-16.0); LYMPHOCYTES % 13.7 % (20.0-50.0); MEAN CORPUSCULAR HEMOGLOBIN 30.2 pg (28.0-32.0); MEAN CORPUSCULAR VOLUME 91.7 fL (81.0-99.0); MEAN PLATELET VOLUME 8.7 fl (7.4-10.4); MONOCYTES % 8.7 % (2.0-8.0); NEUTROPHILS % 65.7 % (40.0-76.0); PLATELET 176 x1000/uL (130-400); RED BLOOD CELL COUNT 3.69 mill/uL (4.2-5.4); RED CELL DISTRIBUTION WIDTH 16.8 % (11.6-14.6)
[2021-06-05 08:00] VITALS: BP 126/62
[2021-06-05] MEDS: PANTOPRAZOLE SODIUM 40 MG/VIAL IV SCH (08:34)
[2021-06-05] MEDS: INSULIN LISPRO (LOW DOSE) 100 UNITS/ML SUBCUT SCH ×3 (08:38→18:00)
[2021-06-05] MEDS ORDERED: POTASSIUM CHLORIDE 20MEQ TABLET SR PO SCH (10:45)
[2021-06-05] MEDS: CEFTRIAXONE 1,000 MG in DEXTROSE 5% WATER 50 ML IV SCH (12:14)
[2021-06-05] MEDS: LEVOFLOXACIN 500MG PREMIX 100 ML IV SCH (14:48)
[2021-06-05 20:00] VITALS: BP 145/56
[2021-06-06] VITALS: BP 136/77
[2021-06-06] MEDS: INSULIN LISPRO (LOW DOSE) 100 UNITS/ML SUBCUT SCH ×2 (00:26→13:50)
[2021-06-06] MEDS: MORPHINE SULFATE 2 MG/ML CPJ (NOT FOR IM USE) IV PRN ×3 (00:29→10:17)
[2021-06-06 04:00] VITALS: BP 156/68
[2021-06-06] MEDS: MECLIZINE 25MG TABLET PO SCH ×2 (04:30→12:30)
[2021-06-06] MEDS: DEXT 5%/0.45% NACL 1000ML 1,000 ML IV SCH (05:31)
[2021-06-06] MEDS: METOCLOPRAMIDE HCL 10MG/2ML VIAL IV SCH ×3 (05:50→12:00)
[2021-06-06 06:38] LABS: BASOPHILS % 0.5 % (0.0-2.0); EOSINOPHILS % 10.3 % (0.0-5.0); HEMATOCRIT. 32.1 % (36.0-48.0); HEMOGLOBIN. 10.8 g/dL (12.0-16.0); MEAN CORPUSCULAR HEMOGLOBIN 30.7 pg (28.0-32.0); MEAN PLATELET VOLUME 8.7 fl (7.4-10.4); MONOCYTES % 8.5 % (2.0-8.0); NEUTROPHILS % 68.7 % (40.0-76.0); PLATELET 176 x1000/uL (130-400); RED BLOOD CELL COUNT 3.52 mill/uL (4.2-5.4); RED CELL DISTRIBUTION WIDTH 16.7 % (11.6-14.6)
[2021-06-06 06:45] LABS: CHLORIDE 108 mEq/L (98-107)
[2021-06-06 08:00] VITALS: BP 151/66
[2021-06-06] MEDS ORDERED: MINERAL OIL ENEMA 133ML PR SCH (08:00)
[2021-06-06] MEDS ORDERED: MAGNESIUM CITRATE 300ML SOLUTION PO SCH (08:00)
[2021-06-06] MEDS ORDERED: IOHEXOL-350 100 ML BOTTLE ONE (09:20)
[2021-06-06] MEDS: PANTOPRAZOLE SODIUM 40 MG/VIAL IV SCH (10:16)
[2021-06-06] MEDS: BLOOD SUGAR DIAGNOSTIC STRIP TEST SCH (11:49)
[2021-06-06] MEDS: LEVOFLOXACIN 500MG PREMIX 100 ML IV SCH (13:45)
[2021-06-06] MEDS ORDERED: LEVO500T89 MT (15:04)
[2021-06-06] MEDS ORDERED: HYDR-4001 MT (15:04)
[2021-06-06 15:58] VITALS: BP 146/59
[2021-06-06 16:00] VITALS: BP 146/59
[2021-06-07] MEDS ORDERED: LEVOFLOXACIN 500MG TABLET PO SCH (11:00)
== END 2021-06-06 16:41 | disposition home or self-care (01) | DRG 74 ==
LOC: ER 15:22 → MICUSO 23:51 → EDBEDREQTM 23:56 → EDBEDREQ 23:56 → 6EST 06-04 08:30
PROVIDERS: ADMIT Internal Medicine; ATTEND Internal Medicine
PROC: B548ZZA Ultrasonography of Superior Vena Cava, Guidance (ICD-10-PCS; principal; 2021-06-06)
PROC: 02HV33Z Insertion of Infusion Device into Superior Vena Cava, Percutaneous Approach (ICD-10-PCS; 2021-06-06)
PROC: B5181ZA Fluoroscopy of Superior Vena Cava using Low Osmolar Contrast, Guidance (ICD-10-PCS; 2021-06-06)
DX: E11.43 Type 2 diabetes mellitus with diabetic autonomic (poly)neuropathy (principal); I31.3 Pericardial effusion (noninflammatory); N39.0 Urinary tract infection, site not specified; E66.2 Morbid (severe) obesity with alveolar hypoventilation; J45.901 Unspecified asthma with (acute) exacerbation; K56.41 Fecal impaction; K52.9 Noninfective gastroenteritis and colitis, unspecified; I27.20 Pulmonary hypertension, unspecified; D50.9 Iron deficiency anemia, unspecified; K31.84 Gastroparesis; G90.8 Other disorders of autonomic nervous system; I10 Essential (primary) hypertension; E11.65 Type 2 diabetes mellitus with hyperglycemia; Z20.822 Contact with and (suspected) exposure to COVID-19; D25.9 Leiomyoma of uterus, unspecified; G89.29 Other chronic pain; K76.0 Fatty (change of) liver, not elsewhere classified; Z79.4 Long term (current) use of insulin; Z79.899 Other long term (current) drug therapy; Z82.49 Family history of ischemic heart disease and other diseases of the circulatory system; Z68.36 Body mass index [BMI] 36.0-36.9, adult; Z90.49 Acquired absence of other specified parts of digestive tract; Z79.1 Long term (current) use of non-steroidal anti-inflammatories (NSAID); J45.909 Unspecified asthma, uncomplicated; K74.60 Unspecified cirrhosis of liver; Z72.89 Other problems related to lifestyle; R51.9 Headache, unspecified
CPT/HCPCS: 36415; 70496; 70498; 71045; 74176; 76705; 76937; 80053; 80061; 80076; 81003; 82248; 82550; 82553; 82962; 83036; 83735; 84439; 84443; 84484; 85025; 86705; 86709; 86803; 87340; 87426; 93005; 97162; 99285; C1725; C9113; J0696; J1815; J1956; J2270; J2405; J2765; J3490; J7040; J7060; J8597; Q9967

== ENCOUNTER 2021-07-23 16:27 | Emergency (ER) | payer MEDICARE, MEDICAID ==
[~2021-07-23] VITALS: Ht 165.1 cm; Wt 91.0 kg
[~2021-07-23 16:27] MED LIST changes: -ALBU6.7H11 INH; +ALBU6.7H15 INH; -KDUR10 PO; -METR500T MT; +POTA-189 PO; -SPIR25TA6 MT
[2021-07-23] MEDS ORDERED: SODIUM CHLORIDE 0.9% 1,000 ML IV ONE (17:30)
[2021-07-23] MEDS ORDERED: KETOROLAC 30MG/ML VIAL IV STA (17:30)
[2021-07-23] MEDS ORDERED: ONDANSETRON HCL 4MG/2ML INJ IV STA (17:30)
[2021-07-23] MEDS ORDERED: MAGNESIUM/ALUMINUM HYDROXIDE/SIMETHICONE 30ML UDC PO STA (17:30)
[2021-07-23 17:40] LABS: BASOPHILS % 0.6 % (0.0-2.0); EOSINOPHILS % 1.9 % (0.0-5.0); HEMATOCRIT. 36.5 % (36.0-48.0); HEMOGLOBIN. 12.2 g/dL (12.0-16.0); LYMPHOCYTES % 12.8 % (20.0-50.0); MEAN CORPUSCULAR HEMOGLOBIN 30.3 pg (28.0-32.0); MEAN CORPUSCULAR VOLUME 90.6 fL (81.0-99.0); MEAN PLATELET VOLUME 9.4 fl (7.4-10.4); MONOCYTES % 6.8 % (2.0-8.0); NEUTROPHILS % 77.9 % (40.0-76.0); PLATELET 280 x1000/uL (130-400); RED BLOOD CELL COUNT 4.03 mill/uL (4.2-5.4); RED CELL DISTRIBUTION WIDTH 13.9 % (11.6-14.6)
[2021-07-23 17:47] LABS: CHLORIDE 96 mEq/L (98-107)
[2021-07-23] MEDS ORDERED: HALOPERIDOL LACTATE 5MG/ML VIAL IM ONE (18:30)
[2021-07-23 19:13] LABS: CLARITY URINE CLEAR (CLEAR); COLOR URINE YELLOW (YELLOW); KETONES URINE TRACE (NEGATIVE); LEUKOCYTE ESTERASE URINE 2+ (NEGATIVE); NITRITE URINE NEGATIVE (NEGATIVE); OCCULT BLOOD URINE NEGATIVE (NEGATIVE); PROTEIN URINE 1+ (NEGATIVE); SPECIFIC GRAVITY URINE 1.017 (1.005-1.030); UROBILINOGEN URINE 0.2 E.U./dL (0.2-1.0)
[2021-07-23] MEDS ORDERED: DICYCLOMINE HCL 10MG/ML 2ML AMP IM ONE (19:45)
[2021-07-23] MEDS ORDERED: IOHEXOL-300 100 ML BOTTLE ONE (20:18)
[2021-07-23] MEDS ORDERED: ONDA4TAB5 MT (21:04)
[2021-07-23 21:30] VITALS: BP 149/77
== END 2021-07-23 21:30 | disposition home or self-care (01) ==
LOC: ER 16:27
DX: R10.13 Epigastric pain (principal); I10 Essential (primary) hypertension; E11.9 Type 2 diabetes mellitus without complications; Z90.49 Acquired absence of other specified parts of digestive tract
CPT/HCPCS: 36415; 71045; 74177; 80053; 81003; 83690; 84484; 85025; 93005; 96372; 96374; 96375; 99285; J0500; J1630; J1885; J2405; J7030; Q9967

== ENCOUNTER 2021-09-25 11:22 | Emergency (ER) | payer MEDICARE, MEDICAID ==
[~2021-09-25] VITALS: Ht 162.6 cm; Wt 85.0 kg
[~2021-09-25 11:22] MED LIST changes: +ONDA4TAB5 MT
[2021-09-25] MEDS ORDERED: KETOROLAC 30MG/ML VIAL IV STA (11:33)
[2021-09-25] MEDS ORDERED: MAGNESIUM/ALUMINUM HYDROXIDE/SIMETHICONE 30ML UDC PO STA (11:33)
[2021-09-25] MEDS ORDERED: ONDANSETRON HCL 4MG/2ML INJ IV STA (11:33)
[2021-09-25] MEDS ORDERED: SODIUM CHLORIDE 0.9% 1,000 ML IV ONE (11:45)
[2021-09-25 12:23] LABS: BASOPHILS % 0.6 % (0.0-2.0); EOSINOPHILS % 2.7 % (0.0-5.0); HEMATOCRIT. 36.3 % (36.0-48.0); HEMOGLOBIN. 11.9 g/dL (12.0-16.0); MEAN CORPUSCULAR VOLUME 85.8 fL (81.0-99.0); MONOCYTES % 9.5 % (2.0-8.0); NEUTROPHILS % 78.2 % (40.0-76.0); PLATELET 201 x1000/uL (130-400); RED BLOOD CELL COUNT 4.23 mill/uL (4.2-5.4)
[2021-09-25 12:28] LABS: CHLORIDE 105 mEq/L (98-107)
[2021-09-25] MEDS ORDERED: HYDROCODONE/ACETAMINOPHEN 5/325MG TABLET PO ONE (15:00)
[2021-09-25] MEDS ORDERED: FAMOTIDINE 20MG TABLET PO ONE (15:00)
[2021-09-25] MEDS ORDERED: HYDR-4001 MT (15:23)
[2021-09-25] MEDS ORDERED: FAMO-135 MT (15:23)
[2021-09-25 15:33] VITALS: BP 167/77
[2021-09-25 15:45] LABS: CLARITY URINE CLEAR (CLEAR); COLOR URINE YELLOW (YELLOW); KETONES URINE NEGATIVE (NEGATIVE); LEUKOCYTE ESTERASE URINE NEGATIVE (NEGATIVE); NITRITE URINE NEGATIVE (NEGATIVE); OCCULT BLOOD URINE NEGATIVE (NEGATIVE); PH URINE 5.5 (4.5-8.0); PROTEIN URINE NEGATIVE (NEGATIVE); SPECIFIC GRAVITY URINE 1.015 (1.005-1.030); UROBILINOGEN URINE 0.2 E.U./dL (0.2-1.0)
== END 2021-09-25 15:48 | disposition home or self-care (01) ==
LOC: ER 11:30
DX: R10.9 Unspecified abdominal pain (principal); K29.70 Gastritis, unspecified, without bleeding; E11.65 Type 2 diabetes mellitus with hyperglycemia; D25.9 Leiomyoma of uterus, unspecified; I10 Essential (primary) hypertension; K74.60 Unspecified cirrhosis of liver; Z79.4 Long term (current) use of insulin; Z90.49 Acquired absence of other specified parts of digestive tract
CPT/HCPCS: 36415; 74176; 80053; 81003; 83690; 84484; 85025; 93005; 96361; 96374; 96375; 99285; J1885; J2405; J7030